=== PATIENT | male | born 1950 | race Caucasian/White ===

== ENCOUNTER 2021-02-15 18:47 | Inpatient (IN) | payer OTHER ==
--- OUTSIDE RECORDS SUMMARY | 2021-02-15 18:49 | XMS REPORT | Continuity of Care Document ---
:1950 Author Organization [facility] t Address [address] [place] [address] Care Team Providers Name Role Phone Pcp Primary Care Physician Unavailable PATRICE Attending Clinician Unavailable CATY Attending Clinician Unavailable CATY Admitting Clinician Unavailable Payers Payer Name Policy Type Policy Number Effective Date Expiration Date S henry MEDICARE PART A \T\ B [id number] - MEDICARE Problems Condition Condition Condition Status Onset Resolution Last Treating Co mments Source Name Details Category Date Date Treatment Clinician Date ST ST Disease Active [facility] 03-11 Luke [facility] - myocardial myocardial 00:00: Me dical infarction infarction 00 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 Family History Family Member Diagnosis Comments Start Date Stop Date Source Natural father Heart disease [facility] Maternal grandmother Diabetes [facility] Natural mother Cancer [facility] Social History Social Habit Start Date Stop Date Quantity Comments [facility] St[facility] History [facility] - Alcohol Binge Medical [facility] Sex Assigned At [facility] Tobacco use and 2019-03-11 2019-03-11 Never used [facility] - exposure 00:00:00 00:00:00 Medical Center Alcohol intake 2019-03-11 2019-03-11 [facility]:00:00 non-drinker of Medical Ce nter alcohol (finding) History [facility] 2019-03-10 2019-03-10 [address] [facility] - Alcohol Frequency 00:00:00 00:00:00 Medical Center Smoking Status Start Date Stop Date Source Never sm[facility] Medications Ordered Filled Start Stop Current Ordering Indication Dosage Frequency Signature Comments Components Source Medication Medication Date Date Medication? Clinician (SIG) Name Name allopurinol Yes 300mg QD Take [address] (ZYLOPRIM) 8-24 mg [facility] - 100 MG 11:15: mouth Medical tablet 42 daily. Center ticagrelor Yes 90mg Q.5D Take 1 [facility] (BRILINTA) 03-12 tablet (90 Brit[facility] es - 90 mg Tab 00:00: mg total) Med ical tablet 00 by mouth 2 Center (two) times daily. aspirin 81 2019- No 81mg QD Take [address] MG chewable 03-12 tablet (81 L ukes - tablet 00:00: 23:59 mg total) Medic al 00 :00 by mouth Center daily. atorvastati 2019- No 80mg QD Take [address] n (LIPITOR) 03-12 tablet (80 L ukes - 80 MG 00:00: 23:59 mg total) Medica l tablet 00 :00 by mouth Center daily. lisinopril 2019- No 2.5mg QD Take [address] (PRINIVIL,Z 03-12 tablet Lukes - ESTRIL) 2.5 00:00: 23:59 (2.5 mg Me dical MG tablet 00 :00 total) by Cente r mouth every morning. metoprolol 2019- No 25mg QD Take [address] (TOPROL-XL) 03-12 tablet (25 L ukes - 25 MG 24 hr 00:00: 23:59 mg total) Medical tablet 00 :00 by mouth Center daily. Procedures This patient has no known procedures. Plan of Care Planned Activity Planned Date Details Comments Source Future Scheduled 2020-03-21 INFLUENZA VACCINE (#1) [facility] Test 00:00:00 [code = INFLUENZA Medical Ce nter VACCINE (#1)] Future Scheduled 2015-07-[address] [facility] - Test 00:00:00 WELLNESS (YEAR 2 or Medical Center FIRST YEAR if no IPPE) [code = MEDICARE ANNUAL WELLNESS (YEAR 2 or FIRST YEAR if no IPPE)] Future Scheduled 2014 PNEUMOCOCCAL 65+ YRS [facility] - Test 00:00:00 (1 of 1 - [facility] [id number] PCV13) [code = PNEUMOCOCCAL 65+ YRS (1 of 1 - [id number] PCV13)] Future Scheduled [address] es - Test 00:00:00 malignant neoplasm of [facility] colon (procedure) [code = 794220050] Encounters Start End Encounter Admission Attending Care Care Encounter Source Date/Time Date/Time Type Type Clinicians Facility Department ID 2021-01-16 2021-01-16 Outpatient PATRICE [facility] [id number] [facility] 09:43:06 13:13:53 CASPER rodriguez of Medicin e 2021-01-16 2021-01-16 Outpatient [facility] [id number] [facility] 09:44:10 10:55:15 Jose G rodriguez of Medicin e Results Test Description Test Time Test Comments Results Result Comments Source BASIC METABOLIC PANEL 2019-03-12 07:13:00 Test Item Value Reference Range Interpretation Comme nts SODIUM (BEAKER) (test code = 137 meq/L 136-145 381) POTASSIUM (BEAKER) (test code 4.2 meq/L 3.5-5.1 = 379) CHLORIDE (BEAKER) (test code = 107 meq/L 98-107 382) CO2 (BEAKER) (test code = 355) 23 meq/L 22-29 BLOOD UREA NITROGEN (BEAKER) 20 mg/dL 7-21 (test code = 354) CREATININE (BEAKER) (test code 1.32 mg/dL 0.57-1.25 H = 358) GLUCOSE RANDOM (BEAKER) (test 100 mg/dL 70-105 code = 652) CALCIUM (BEAKER) (test code = 8.6 mg/dL 8.4-10.2 697) EGFR (BEAKER) (test code = I NSUFFICIENT CLINICAL DATA TO 1092) CALCULATE ESTIM ATED GFR. CBC W/PLT COUNT & AUTO [id number] 06:31:00 Test Item Value Reference Range Interpretation Comments WHITE BLOOD CELL COUNT (BEAKER) 13.4 K/ L 3.5-10.5 H (test code = 775) RED BLOOD CELL COUNT (BEAKER) 4.55 M/ L 4.63-6.08 L (test code = 761) HEMOGLOBIN (BEAKER) (test code = 13.7 GM/DL 13.7-17.5 410) HEMATOCRIT (BEAKER) (test code = 40.2 % 40.1-51.0 411) MEAN CORPUSCULAR VOLUME (BEAKER) 88.4 fL 79.0-92.2 (test code = 753) MEAN CORPUSCULAR HEMOGLOBIN 30.1 pg 25.7-32.2 (BEAKER) (test code = 751) MEAN CORPUSCULAR HEMOGLOBIN CONC 34.1 GM/DL 32.3-36.5 (BEAKER) (test code = 752) RED CELL DISTRIBUTION WIDTH 13.2 % 11.6-14.4 (BEAKER) (test code = 412) PLATELET COUNT (BEAKER) (test 239 K/CU MM 150-450 code = 756) MEAN PLATELET VOLUME (BEAKER) 9.4 fL 9.4-12.4 (test code = 754) NUCLEATED RED BLOOD CELLS 0 /100 WBC 0-0 (BEAKER) (test code = 413) NEUTROPHILS RELATIVE PERCENT 62 % (BEAKER) (test code = 429) LYMPHOCYTES RELATIVE PERCENT 27 % (BEAKER) (test code = 430) MONOCYTES RELATIVE PERCENT 8 % (BEAKER) (test code = 431) EOSINOPHILS RELATIVE PERCENT 2 % (BEAKER) (test code = 432) BASOPHILS RELATIVE PERCENT 0 % (BEAKER) (test code = 437) NEUTROPHILS ABSOLUTE COUNT 8.30 K/ L 1.78-5.38 H (BEAKER) (test code = 670) LYMPHOCYTES ABSOLUTE COUNT 3.56 K/ L 1.32-3.57 (BEAKER) (test code = 414) MONOCYTES ABSOLUTE COUNT (BEAKER) 1.13 K/ L 0.30-0.82 H (test code = 415) EOSINOPHILS ABSOLUTE COUNT 0.32 K/ L 0.04-0.54 (BEAKER) (test code = 416) BASOPHILS ABSOLUTE COUNT (BEAKER) 0.05 K/ L 0.01-0.08 (test code = 417) IMMATURE GRANULOCYTES-RELATIVE 0 % 0-1 PERCENT (BEAKER) (test code = 2801) [id number] 20:34:00 Test Item Value Reference Range Interpretation Comments ACTIVATED CLOTTING TIME 285 sec TEST ED AT [place] [address] [facility] (test code = [address] [place] [address]) [id number] 20:34:00 Test Item Value Reference Range Interpretation Comments ACTIVATED CLOTTING TIME 241 sec TEST ED AT [place] [address] ([facility]) (test code = [address] [place] [address]) [id number] HEMOGLOBIN [id number] 09:31:00 Test Item Value Reference Range Interpretation Comments HEMOGLOBIN A1C (BEAKER) (test code = 5.6 % 4.3-6.1 368) [id number] 08:17:00 Test Item Value Reference Range Interpretation Comments THYROID STIMULATING HORMONE 2.46 uIU/mL 0.35-4.94 (BEAKER) (test code = 772) BASIC METABOLIC [id number] 06:37:00 Test Item Value Reference Range Interpretation Comments SODIUM (BEAKER) 137 meq/L 136-145 (test code = 381) POTASSIUM (BEAKER) 4.3 meq/L 3.5-5.1 (test code = 379) CHLORIDE (BEAKER) 105 meq/L 98-107 (test code = 382) CO2 (BEAKER) (test 23 meq/L 22-29 code = 355) BLOOD UREA NITROGEN 21 mg/dL 7-21 (BEAKER) (test code = 354) CREATININE (BEAKER) 1.51 mg/dL 0.57-1.25 H (test code = 358) GLUCOSE RANDOM 152 mg/dL 70-105 H (BEAKER) (test code = 652) CALCIUM (BEAKER) 9.2 mg/dL 8.4-10.2 (test code = 697) EGFR (BEAKER) (test mL/min/1.73 INSUFFIC IENT CLINICAL code = 1092) sq m DATA TO CALCULA TE ESTIMATED GFR. [id number] 06:34:00 Test Item Value Reference Range Interpretation Comments MAGNESIUM (BEAKER) (test code = 2.1 mg/dL 1.6-2.6 627) FastingLIPID [id number] 06:34:00 Test Item Value Reference Range Interpretation Comments TRIGLYCERIDES (BEAKER) (test code = 179 mg/dL 540) CHOLESTEROL (BEAKER) (test code = 202 mg/dL 631) HDL CHOLESTEROL (BEAKER) (test code 40 mg/dL = 976) LDL CHOLESTEROL CALCULATED (BEAKER) 126 mg/dL (test code = 633) Triglyceride Reference Range: Low Risk <150 Borderline 150-199 High Risk 200-499 Very High Risk >=500Cholesterol Reference Range: Low Risk <200 Borderline 200-239 High Risk >240HDL Cholesterol Reference Range: Low Risk >=60 High Risk <40LDL Cholesterol Reference Range: Optimal <100 Near Optimal 100-129 Borderline 130-159 High 160-189 Very High >=190 FastingCBC W/PLT COUNT & AUTO [id number] 05:03:00 Test Item Value Reference Range Interpretation Comments WHITE BLOOD CELL COUNT (BEAKER) 16.6 K/ L 3.5-10.5 H (test code = 775) RED BLOOD CELL COUNT (BEAKER) 4.87 M/ L 4.63-6.08 (test code = 761) HEMOGLOBIN (BEAKER) (test code = 14.7 GM/DL 13.7-17.5 410) HEMATOCRIT (BEAKER) (test code = 42.3 % 40.1-51.0 411) MEAN CORPUSCULAR VOLUME (BEAKER) 86.9 fL 79.0-92.2 (test code = 753) MEAN CORPUSCULAR HEMOGLOBIN 30.2 pg 25.7-32.2 (BEAKER) (test code = 751) MEAN CORPUSCULAR HEMOGLOBIN CONC 34.8 GM/DL 32.3-36.5 (BEAKER) (test code = 752) RED CELL DISTRIBUTION WIDTH 13.0 % 11.6-14.4 (BEAKER) (test code = 412) PLATELET COUNT (BEAKER) (test 266 K/CU MM 150-450 code = 756) MEAN PLATELET VOLUME (BEAKER) 9.6 fL 9.4-12.4 (test code = 754) NUCLEATED RED BLOOD CELLS 0 /100 WBC 0-0 (BEAKER) (test code = 413) NEUTROPHILS RELATIVE PERCENT 85 % (BEAKER) (test code = 429) LYMPHOCYTES RELATIVE PERCENT 10 % (BEAKER) (test code = 430) MONOCYTES RELATIVE PERCENT 4 % (BEAKER) (test code = 431) EOSINOPHILS RELATIVE PERCENT 0 % (BEAKER) (test code = 432) BASOPHILS RELATIVE PERCENT 0 % (BEAKER) (test code = 437) NEUTROPHILS ABSOLUTE COUNT 14.15 K/ L 1.78-5.38 H (BEAKER) (test code = 670) LYMPHOCYTES ABSOLUTE COUNT 1.66 K/ L 1.32-3.57 (BEAKER) (test code = 414) MONOCYTES ABSOLUTE COUNT (BEAKER) 0.69 K/ L 0.30-0.82 (test code = 415) EOSINOPHILS ABSOLUTE COUNT 0.01 K/ L 0.04-0.54 L (BEAKER) (test code = 416) BASOPHILS ABSOLUTE COUNT (BEAKER) 0.04 K/ L 0.01-0.08 (test code = 417) IMMATURE GRANULOCYTES-RELATIVE 1 % 0-1 PERCENT (BEAKER) (test code = 2807)
[2021-02-15] MEDS ORDERED: AZITHROMYCIN 500 MG INJ IVPB ONE (19:39)
[2021-02-15] MEDS ORDERED: METHYLPREDNISOLONE 125 MG INJ ONE (19:39)
[2021-02-15] MEDS ORDERED: ACETAMINOPHEN 500 MG TAB ONE (19:39)
[2021-02-15] MEDS ORDERED: ALBUTEROL INHALER 60 PUFF/8 GM IH ONE (19:40)
[2021-02-15] MEDS ORDERED: NA CHLORIDE 0.9% 250 ML ONE (19:40)
[2021-02-15] MEDS ORDERED: ENOXAPARIN 80 MG/0.8 ML SQ ONE (19:40)
[2021-02-15] MEDS ORDERED: NA CHLORIDE 0.9% 1,000 ML ONE (19:40)
[2021-02-15 19:43] LABS: Arterial Blood Carboxyhemoglob 1.8 % (0-1.5); Blood Gas Oxyhemoglobin 85.3 % (94-97); Blood O2 Saturation 87.7 % (92-98.5)
[2021-02-15 19:51] LABS: Absolute Lymphocytes (CBC) 0.7 K/uL (0.7-4.9); Basophils % 0.3 % (0-1.3); Hematocrit 37.1 % (39.6-49.0); Lymphocytes % 3.4 % (15.3-44.8); MPV 7.7 fL (7.6-11.3)
[2021-02-15 20:03] LABS: Protime INR 1.33
--- NOTE | 2021-02-15 20:11 | RAD REPORT ---
EXAM DESCRIPTION: RAD - Chest Single View - 02/15/2021 7:43 pm CLINICAL HISTORY: CONGESTION COMPARISON: Chest Single View dated 10/20/2016 FINDINGS: Patchy ill-defined airspace disease bilaterally. The heart size is within normal limits.No acute osseous abnormality. No significant pleural effusions or pneumothorax. IMPRESSION: Moderate patchy bilateral airspace disease concerning for multifocal pneumonia, includin g Covid-19
--- NOTE | 2021-02-15 20:16 | EDPHYS ---
Physician Documentation [facility] Name: Issa Breen Age: 70 yrs Sex: Male : 1950 Arrival Date: 02/15/2021 Time: 18:48 Bed 4 Private MD: ED Physician Abigail Moore HPI: 02/15 19:18 This 70 yrs old Male presents to ER via Wheelchair with complaints of ma2 Shortness Of Breath - covid+. 19:18 The patient has shortness of breath at rest. Onset: The symptoms/episode began/occurred ma2 gradually, 1 day(s) ago. Associated signs and symptoms: Pertinent negatives: diaphoresis, hemoptysis, nausea, numbness in extremities. Severity of symptoms: At their worst the symptoms were mild in the emergency department the symptoms are unchanged. The patient has not experienced similar symptoms in the past. O2 was in 60 at home, feels sick and dehydrated, passed out. Historical: - Allergies: 18:51 No Known Allergies; aa5 - Home Meds: 18:51 Plavix 75 mg Oral tab 1 tab once daily [Active]; lisinopril 2.5 mg Oral tab once daily aa5 [Active]; atorvastatin 80 mg oral tab 1 tab once daily [Active]; metoprolol tartrate 25 mg Oral tab once daily [Active]; aspirin 81 mg Oral tab daily [Active]; allopurinol 100 mg Oral tab once daily [Active]; - PMHx: 18:51 Gout; Hypertension; Myocardial infarction; aa5 - PSHx: 18:51 heart stent; aa5 - Social history:: Smoking status: Patient denies any tobacco usage or history of. ROS: 19:19 Constitutional: Negative for fever, chills, and weight loss. ma2 19:19 All other systems are negative. Exam: 19:19 Constitutional: This is a well developed, well nourished patient who is awake, alert, ma2 and in no acute distress. Head/Face: Normocephalic, atraumatic. Eyes: Pupils equal round and reactive to light, extra-ocular motions intact. Lids and lashes normal. Conjunctiva and sclera are non-icteric and not injected. Cornea within normal limits. Periorbital areas with no swelling, redness, or edema. ENT: Nares patent. No nasal discharge, no septal abnormalities noted. Tympanic membranes are normal and external auditory canals are clear. Oropharynx with no redness, swelling, or masses, exudates, or evidence of obstruction, uvula midline. Mucous membranes moist. Neck: Trachea midline, no thyromegaly or masses palpated, and no cervical lymphadenopathy. Supple, full range of motion without nuchal rigidity, or vertebral point tenderness. No Meningismus. Chest/axilla: Normal chest wall appearance and motion. Nontender with no deformity. No lesions are appreciated. Cardiovascular: Regular rate and rhythm with a normal S1 and S2. No gallops, murmurs, or rubs. Normal PMI, no JVD. No pulse deficits. Respiratory: Patient is hypoxemic, labored breathing, saturation is 80 on room air, he is on nonrebreather at this time satting 92, respiratory rate is 30, there is diffuse bilateral rails in both lungs lungs. However have equal breath sounds bilaterally, No wheezes noted. no retractions or nasal flaring. Abdomen/GI: Soft, non-tender, with normal bowel sounds. No distension or tympany. No guarding or rebound. No evidence of tenderness throughout. Skin: Warm, dry with normal turgor. Normal color with no rashes, no lesions, and no evidence of cellulitis. MS/ Extremity: Pulses equal, no cyanosis. Neurovascular intact. Full, normal range of motion. Neuro: Awake and alert, GCS 15, oriented to person, place, time, and situation. Cranial nerves II-XII grossly intact. Motor strength 5/5 in all extremities. Sensory grossly intact. Cerebellar exam normal. Normal gait. Vital Signs: 18:51 BP 132 / 57; Pulse 100; Resp 30 S; Temp 102.0(O); Pulse Ox 69% on R/A; Weight 88.45 kg aa5 (R); Height 5 ft. 8 in. (172.72 cm) (R); Pain 0/10; 18:53 Pulse Ox 63% on R/A; aa5 18:56 Pulse Ox 86% on Non-rebreather mask; aa5 20:00 BP 107 / 55; Pulse 96; Resp 26; Pulse Ox 92% on NC; jb4 21:00 BP 101 / 58; Pulse 89; Resp 26; Temp 98.2(O); Pulse Ox 92% on NC; jb4 22:13 BP 106 / 57; Pulse 74; Resp 24; Pulse Ox 90% on NC; ea 18:51 Body Mass Index 29.65 (88.45 kg, 172.72 cm) aa5 20:00 30 LPM, 90% FiO2, High Flow Cannula jb4 22:13 High flow cannula ea MDM: 19:03 Patient medically screened. [facility] 19:19 Differential diagnosis: Anemia asthma, Bronchitis CHF exacerbation, pneumonia, vt2 pulmonary edema, reactive airway disease. 20:15 Data reviewed: vital signs, nurses notes. Counseling: I had a detailed discussion with [facility] the patient and/or guardian regarding: the historical points, exam findings, and any diagnostic results supporting the discharge/admit diagnosis, the presence of at least one elevated blood pressure reading (>120/80) during this emergency department visit, the need for further work-up and treatment in the hospital. 02/15 19:13 Order name: BMP [facility] 02/15 19:13 Order name: Blood Culture Adult (2) [facility] 02/15 19:13 Order name: C-Reactive Protein [facility] 02/15 19:13 Order name: CBC with Diff [facility] 02/15 19:13 Order name: Ferritin [facility] 02/15 19:13 Order name: Flu [facility] 02/15 19:13 Order name: LFT's [facility] 02/15 19:13 Order name: Lactate; Complete Time: 20:23 [facility] 02/15 19:13 Order name: Lipase; Complete Time: 20:27 [facility] 02/15 19:13 Order name: PT-INR; Complete Time: 20:15 [facility] 02/15 19:13 Order name: Procalcitonin [facility] 02/15 19:13 Order name: Ptt, Activated; Complete Time: 20:15 [facility] 02/15 19:13 Order name: Strep; Complete Time: 20:38 [facility] 02/15 19:13 Order name: Troponin (emerg Dept Use Only); Complete Time: 20:27 [facility] 02/15 19:13 Order name: Urine Microscopic Only [facility] 02/15 19:13 Order name: CXR XRAY; Complete Time: 20:15 [facility] 02/15 19:13 Order name: ABG; Complete Time: 20:15 [facility] 02/15 19:13 Order name: Basic Metabolic Panel; Complete Time: 20:27 [facility] 02/15 19:13 Order name: Blood Culture [facility] 02/15 19:13 Order name: C-Reactive Protein; Complete Time: 20:27 [facility] 02/15 19:13 Order name: CBC with Automated Diff; Complete Time: 20:38 [facility] 02/15 19:13 Order name: Ferritin; Complete Time: 20:27 [facility] 02/15 19:13 Order name: Influenza Screen (A ; Complete Time: 20:38 [facility] 02/15 19:13 Order name: Liver (Hepatic) Function; Complete Time: 20:27 [facility] 02/15 20:36 Order name: CT Head Brain wo Cont [facility] 02/15 20:37 Order name: Manual Differential; Complete Time: 20:38 [facility] 02/15 20:38 Order name: Throat Culture [facility] 02/15 21:33 Order name: CT [facility] 02/15 19:13 Order name: EKG; Complete Time: 19:13 [facility] 02/15 19:13 Order name: Cardiac monitoring; Complete Time: 20:13 [facility] 02/15 19:13 Order name: Droplet/Contact Precautions; Complete Time: 19:14 [facility] 02/15 19:13 Order name: EKG - Nurse/Tech; Complete Time: 20:13 [facility] 02/15 19:13 Order name: IV Start; Complete Time: 20:13 [facility] 02/15 19:13 Order name: Labs collected and sent; Complete Time: 20:13 [facility] 02/15 19:13 Order name: O2 Per Protocol; Complete Time: 19:14 [facility] 02/15 19:13 Order name: O2 Sat Monitoring; Complete Time: 19:14 [facility] Administered Medications: 19:30 Drug: Acetaminophen 1000 mg Route: PO; jb4 21:36 Follow up: Response: No adverse reaction; Marked relief of symptoms; Temperature is jb4 decreased 19:30 Drug: Albuterol HFA Inhaler 2 puffs Route: Inhalation; jb4 21:35 Follow up: Response: No adverse reaction jb4 19:45 Drug: SOLU-Medrol (methylPrednisoLONE) 125 mg Route: IVP; Site: right forearm; jb4 21:35 Follow up: Response: No adverse reaction jb4 19:59 Drug: Lovenox (enoxaparin) 80 mg Route: Sub-Q; Site: left lower abdomen; jb4 21:35 Follow up: Response: No adverse reaction jb4 20:00 Drug: NS 0.9% 1000 ml Route: IV; Rate: 125 ml/hr; Site: right forearm; jb4 21:35 Follow up: Response: No adverse reaction; IV Status: Infusion continued upon admission jb4 20:02 Drug: Rocephin (cefTRIAXone) 1 grams Route: IV; Rate: calculated rate; Site: right jb4 forearm; 20:05 Follow up: Response: No adverse reaction; IV Status: Completed infusion jb4 20:05 Drug: AZITHromycin 500 mg Route: IVPB; Infused Over: 1 hrs; Site: right forearm; jb4 21:05 Follow up: Response: No adverse reaction; IV Status: Completed infusion; IV Intake: jb4 250ml Disposition Summary: 02/15/21 20:16 Hospitalization Ordered Hospitalization Status: Inpatient Admission ma2 Provider: Lenny Crews Condition: Stable [facility] Problem: new vt2 Symptoms: are unchanged vt2 Bed/Room Type: Standard [facility] Location: Intensive Care Unit(02/15/21 21:04) tl1 Room Assignment: 3-(02/15/21 21:04) tl1 Diagnosis - Viral pneumonia, unspecified - COVID - 19 ma2 Forms: - Medication Reconciliation Form ma2 - SBAR form ma2 Signatures: Dispatcher [employer] EDYamile Appiah RN RN bb Luana Garcia RN RN aa5 Daniel Zuñiga, CHIEF OF STAFF-C CHIEF OF STAFF-Cla1 Felipa Dhaliwal RN RN tl1 Satinder Pedroza RN RN jb4 Abigail Moore MD MD ma2 Corrections: (The following items were deleted from the chart) 20:38 19:13 Zabala ordered. ma2 la1 21:04 20:16 Telemetry/MedSurg (Inpatient) ma2 tl1 21:04 20:16 ma2 tl1 22:22 19:13 Urine Dipstick-Ancillary ordered. ma2 jb4
--- NOTE | 2021-02-15 20:16 | ER ---
Nurse's Notes [facility] Name: Issa Breen Age: 70 yrs Sex: Male : 1950 Arrival Date: 02/15/2021 Time: 18:48 Bed 4 Private MD: Diagnosis: Viral pneumonia, unspecified-COVID - 19 Presentation: 02/15 18:51 Chief complaint: Pt's nephew reports pt has been postiive for COVID-19 for 2 weeks and aa5 reports O2 sat was 63% RA at home and HR 120s. Pt c/o SOB and fever. Labored respirations noted, pt is 69% O2 sat RA. 18:51 Coronavirus screen: Client reports previous positive COVID test result. Ebola Screen: aa5 Patient negative for fever greater than or equal to 101.5 degrees Fahrenheit, and additional compatible Ebola Virus Disease symptoms. Initial Sepsis Screen: Does the patient meet any 2 criteria? RR > 20 per min. Temp <36.0*C (96.8*F)) or > 38.3*C (100.9*F). HR > 90 bpm. Yes Does the patient have a suspected source of infection? Yes:. Risk Assessment: Do you want to hurt yourself or someone else? Patient reports no desire to harm self or others. Onset of symptoms was February 15, 2021. 18:51 Acuity: RICA 1 aa5 18:51 Method Of Arrival: Wheelchair aa5 Historical: - Allergies: 18:51 No Known Allergies; aa5 - Home Meds: 18:51 Plavix 75 mg Oral tab 1 tab once daily [Active]; lisinopril 2.5 mg Oral tab once daily aa5 [Active]; atorvastatin 80 mg oral tab 1 tab once daily [Active]; metoprolol tartrate 25 mg Oral tab once daily [Active]; aspirin 81 mg Oral tab daily [Active]; allopurinol 100 mg Oral tab once daily [Active]; - PMHx: 18:51 Gout; Hypertension; Myocardial infarction; aa5 - PSHx: 18:51 heart stent; aa5 - Social history:: Smoking status: Patient denies any tobacco usage or history of. Screenin:05 Abuse screen: Denies threats or abuse. Nutritional screening: No deficits noted. jb4 Tuberculosis screening: No symptoms or risk factors identified. Fall Risk None identified. Assessment: 19:05 General: Appears distressed, uncomfortable, Behavior is calm, cooperative. Pain: Denies jb4 pain. Neuro: Level of Consciousness is awake, alert, obeys commands, Oriented to person, place, time, situation. Cardiovascular: Patient's skin is warm and dry. Respiratory: Airway is patent Respiratory effort is even, labored, Respiratory pattern is symmetrical, tachypnea Breath sounds are clear in right upper lobe, left upper lobe and left lower lobe Breath sounds with crackles in right middle lobe, right lower lobe, left posterior upper lobe, right posterior upper lobe, left posterior lower lobe, right posterior middle lobe and right posterior lower lobe. GI: No signs and/or symptoms were reported involving the gastrointestinal system. : No signs and/or symptoms were reported regarding the genitourinary system. EENT: No signs and/or symptoms were reported regarding the EENT system. Derm: Skin is intact, Skin is pink, warm \T\ dry. Musculoskeletal: Circulation, motion, and sensation intact. Range of motion: intact in all extremities. 20:00 Reassessment: Pt remains awake and alert, remains on High Flow NC. IV site is clean dry jb4 and intact. Respirations remain labored and tachypneic. No s/s of pain or distress noted. 21:00 Reassessment: Patient appears in no apparent distress at this time. No changes from jb4 previously documented assessment. Patient and/or family updated on plan of care and expected duration. Pain level reassessed. Vital Signs: 18:51 BP 132 / 57; Pulse 100; Resp 30 S; Temp 102.0(O); Pulse Ox 69% on R/A; Weight 88.45 kg aa5 (R); Height 5 ft. 8 in. (172.72 cm) (R); Pain 0/10; 18:53 Pulse Ox 63% on R/A; aa5 18:56 Pulse Ox 86% on Non-rebreather mask; aa5 20:00 BP 107 / 55; Pulse 96; Resp 26; Pulse Ox 92% on NC; jb4 21:00 BP 101 / 58; Pulse 89; Resp 26; Temp 98.2(O); Pulse Ox 92% on NC; jb4 22:13 BP 106 / 57; Pulse 74; Resp 24; Pulse Ox 90% on NC; ea 18:51 Body Mass Index 29.65 (88.45 kg, 172.72 cm) aa5 20:00 30 LPM, 90% FiO2, High Flow Cannula jb4 22:13 High flow cannula ea ED Course: 18:48 Patient arrived in ED. as 18:51 Arm band placed on. aa5 19:03 Abigail Moore MD is Attending Physician. ma2 19:03 Baron Rogers, JUANA is Primary Nurse. bp 19:04 Triage completed. aa5 19:05 Patient has correct armband on for positive identification. Bed in low position. Call 4 light in reach. Side rails up X 1. dubbing machine operator on. Pulse ox on. NIBP on. 19:43 CXR XRAY In Process Unspecified. EDMS 19:45 Initial lab(s) drawn, by me, sent to lab. Inserted saline lock: 18 gauge in right jb4 antecubital area, using aseptic technique. Blood collected. 20:15 Lenny Crews is Hospitalizing Provider. ma2 21:34 No provider procedures requiring assistance completed. Patient admitted, IV remains in jb4 place. Administered Medications: 19:30 Drug: Acetaminophen 1000 mg Route: PO; jb4 21:36 Follow up: Response: No adverse reaction; Marked relief of symptoms; Temperature is jb4 decreased 19:30 Drug: Albuterol HFA Inhaler 2 puffs Route: Inhalation; jb4 21:35 Follow up: Response: No adverse reaction jb4 19:45 Drug: SOLU-Medrol (methylPrednisoLONE) 125 mg Route: IVP; Site: right forearm; jb4 21:35 Follow up: Response: No adverse reaction jb4 19:59 Drug: Lovenox (enoxaparin) 80 mg Route: Sub-Q; Site: left lower abdomen; jb4 21:35 Follow up: Response: No adverse reaction jb4 20:00 Drug: NS 0.9% 1000 ml Route: IV; Rate: 125 ml/hr; Site: right forearm; jb4 21:35 Follow up: Response: No adverse reaction; IV Status: Infusion continued upon admission jb4 20:02 Drug: Rocephin (cefTRIAXone) 1 grams Route: IV; Rate: calculated rate; Site: right jb4 forearm; 20:05 Follow up: Response: No adverse reaction; IV Status: Completed infusion jb4 20:05 Drug: AZITHromycin 500 mg Route: IVPB; Infused Over: 1 hrs; Site: right forearm; jb4 21:05 Follow up: Response: No adverse reaction; IV Status: Completed infusion; IV Intake: jb4 250ml Intake: 21:05 IV: 250ml; Total: 250ml. jb4 Outcome: 20:16 Decision to Hospitalize by Provider. ma2 22:13 Admitted to ICU accompanied by nurse, via stretcher, with oxygen, on monitor, with ea chart, Report called to Receiving nurse in ICU 22:13 Condition: stable 22:13 Instructed on the need for admit. 22:22 Patient left the ED. jb4 Signatures: Dispatcher [employer] EDMS Shira Hendrickson Audri, RN RN aa5 Satinder Pedroza, RN RN jb4 Amber Wood, RN RN Baron Donis RN RN Abigail Anthony MD MD ma2 Corrections: (The following items were deleted from the chart) 19:04 18:51 Chief complaint: Pt's nephew reports pt has been postiive for COVID-19 for 2 aa5 weeks and reports O2 sat was 63% RA at home aa5 20:00 19:45 SOLU-Medrol (methylPrednisoLONE) 125 mg IVP in right antecubital jb4 jb4
[2021-02-15 20:25] LABS: Albumin 2.4 g/dL (3.4-5.0); Bilirubin Direct 0.8 mg/dL (0-0.2); Potassium 3.8 mmol/L (3.5-5.1); Protein, Total 6.7 g/dL (6.4-8.2); Troponin (Emerg Dept Use Only) 0.09 ng/mL (0.0-0.045)
[2021-02-15] MEDS ORDERED: CEFTRIAXONE/SWI 1gm 1 GM/10 ML SYR ONE (20:27)
[2021-02-15 20:36] LABS: Blood Morphology Comment NOT SEEN (NOT SEEN); Platelet Estimate ADEQ
[2021-02-15] MEDS ORDERED: ACETAMINOPHEN 500 MG TAB PO PRN (20:43)
[2021-02-15] MEDS ORDERED: ONDANSETRON 4 MG/2 ML VIAL IV PRN (20:43)
[2021-02-15] MEDS: NA CHLORIDE 0.9% 1,000 ML IV SCH (20:49)
[2021-02-15] MEDS: APIXABAN 5 MG TABLET PO SCH (20:51)
[2021-02-15] MEDS: ASCORBIC ACID 500 MG TABLET PO SCH (21:00)
[2021-02-15] MEDS ORDERED: ATORVASTATIN 40 MG TAB PO SCH (21:00)
[2021-02-15] MEDS ORDERED: METHYLPREDNISOLONE 40 MG INJ IV SCH (21:00)
--- NOTE | 2021-02-15 21:23 | P.HP ---
Certification for Inpatient Patient admitted to: Inpatient With expected LOS: >2 Midnights Patient will require the following post-hospital care: None Practitioner: I am a practitioner with admitting privileges, knowledge of patient current condition, hospital course, and medical plan of care. Services: Services provided to patient in accordance with Admission requirements found in Title 42 Section 412.3 of the Code of Federal Regulations Patient History Date of Service: 02/15/21 Primary Care Provider: None Reason for admission: COVID-19 pneumonia History of Present Illness: 70-year-old male with history of CAD status post stent, gout, hypertension presents to the emergency department for shortness of breath. P atient reports testing positive for Covid approximately 2 weeks ago, family member checked on him and noted that his saturations were in the 60s on room air. Patient was brought to the emergency department for further evaluation and was placed on high flow oxygen at 90% FiO2 40 L. Patient labs were significant for white blood cell count 20.3 with left shift hemoglobin 12.4 ABG with pH of 7.5 PCO2 25.8 PO2 56.1 sodium 133 creatinine 1.79 GFR 38 lactic acid 3.2 ferritin 1400 2T bili 2.0D bili 0.8 AST 148 ALT 135 alk phos 295 troponin 0 0.09 C-reactive protein 230 procalcitonin 0.45. Patient likely was hypoxic for a very prolonged period of time at home contributing to this endorgan damage. Chest x-ray demonstrates multifocal pneumonia compatible with COVID-19 pattern, patient was given IV steroids in the emergency department ED provider wishes to admit for further evaluation and management. 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 moist/pink Neck: Supple, 2+ carotid pulse no bruit, No LAD Respiratory: Normal air movement, Diminished, Other (Tachypnea, dyspnea) Cardiovascular: No edema, Regular rate/rhythm, Normal S1 S2 Capillary refill: <2 Seconds Gastrointestinal: Normal bowel sounds, No tenderness Musculoskeletal: No tenderness Integumentary: No rashes Neurological: Normal speech, Normal strength at 5/5 x4 extr, Normal tone, Normal affect - Studies Laboratory Data (last 24 hrs) 02/15/21 19:37: PT 15.3 H, INR 1.33, APTT 27.6 02/15/21 19:37: WBC 20.30 H*, Hgb 12.4 L, Hct 37.1 L, Plt Count 237 02/15/21 19:37: Sodium 133 L, Potassium 3.8, BUN 31 H, Creatinine 1.79 H, Glucose 144 H, Total Bilirubin 2.0 H, AST 148 H, ALT 135 H, Alkaline Phosphatase 294 H, Lipase 105 Microbiology Data (last 24 hrs): 02/15/21 19:45 Nasopharnyx Influenza Type A Antigen Screen - Final 02/15/21 19:45 Nasopharnyx Influenza Type B Antigen Screen - Final 02/15/21 19:45 Throat Group A Streptococcus Rapid Screen - Final Assessment and Plan - Plan Assessment: Acute hypoxic respiratory failure secondary to COVID-19 pneumoniaunvaccinated History CAD S/P stent Renal insufficiency Acute liver injury Elevated troponin Hypertension Gout Plan: Acute hypoxic respiratory failure secondary to COVID-19 pneumoniaunvaccinated: Possibly complicated with superimposed bacterial pneumonia as patient's white blood cell count is 20, patient has not been on IV steroids at home, continue with IV Rocephin/Zithromax in addition to IV steroids, oral supplements, supplemental oxygen as needed. Pulmonology consulted, patient with elevated kidney/liver labs will limit options for additional therapeutics. Continue with full dose anticoagulation, patient received Lovenox in the emergency department will transition to Eliquis tomorrow. Appreciate further input from pulmonology. History CAD S/P stent: Obtain an continue home medications Renal insufficiency: Patient appears dehydrated, sodium 133, will continue gentle hydration overnight. Consult nephrology as necessary. Acute liver injury: Patient without any abdominal pain, likely related to prolonged hypoxia, will obtain daily CMP levels to monitor LFT. Elevated troponin: Likely demand ischemia related to hypoxia, trend troponins, monitor on telemetry. Cardiology consult as necessary. Hypertension: Continue home medication Gout: Continue home medication DVT PPX: Code status: Discharge Plan: Home Plan to discharge in: Greater than 2 days - Advance Directives Does patient have a Living Will: No Does patient have a Durable POA for Healthcare: No - Code Status/Comfort Care Code Status Assessed: Yes (Full code) Critical Care: No Time Spent Managing Pts Care (In Minutes): 55
--- NOTE | 2021-02-15 21:32 | RAD REPORT ---
EXAM DESCRIPTION: CT - Head Brain Wo Cont - 02/15/2021 9:25 pm CLINICAL HISTORY: fall COMPARISON: Head Brain Wo Cont dated 10/20/2016 TECHNIQUE: All CT scans are performed using dose optimization technique as appropriate and may inclu de automated exposure control or mA/KV adjustment according to patient size. FINDINGS: No intracranial hemorrhage, hydrocephalus or extra-axial fluid collection.No areas of brai n edema or evidence of midline shift. The paranasal sinuses and mastoids are clear. The calvarium is intact. IMPRESSION: No acute intracranial abnormality.
[2021-02-16] MEDS: NA CHLORIDE 0.9% 1,000 ML IV SCH ×2 (01:27→14:04)
[2021-02-16 05:14] LABS: Absolute Lymphocytes (CBC) 0.8 K/uL (0.7-4.9); Basophils % 0.1 % (0-1.3); Hematocrit 35.9 % (39.6-49.0); Lymphocytes % 5.7 % (15.3-44.8)
[2021-02-16 05:33] LABS: Urine Appearance CLOUDY (Clear); Urine Bilirubin NEGATIVE (Negative); Urine Blood NEGATIVE (Negative); Urine Color YELLOW (Yellow); Urine Glucose NEGATIVE (Negative); Urine Protein 1+ (Negative); Urine Specific Gravity 1.015 (1.005-1.030); Urine Urobilinogen 0.2 mg/dL (0.2-1.0)
[2021-02-16 05:37] LABS: Urine Microscopic Reflex ORDER UMIC
[2021-02-16 05:48] LABS: Arterial Blood Carboxyhemoglob 0.8 % (0-1.5); Blood Gas Oxyhemoglobin 88.4 % (94-97); Blood O2 Saturation 90.2 % (92-98.5)
[2021-02-16 05:51] LABS: Albumin 2.3 g/dL (3.4-5.0); Bilirubin Total 1.1 mg/dL (0.2-1.0); Magnesium 2.7 mg/dL (1.8-2.4); Potassium 3.7 mmol/L (3.5-5.1); Protein, Total 6.4 g/dL (6.4-8.2); Troponin I 0.05 ng/mL (0.0-0.045)
[2021-02-16 06:09] LABS: Ferritin 1435.3 ng/mL (26-388)
[2021-02-16 06:25] LABS: Urine Amorphous Sediment 1+ /HPF (NONE SEEN); Urine Bacteria >50 /HPF (NONE SEEN); Urine Mucus 1+ /HPF (NONE SEEN); Urine RBC <5 /HPF (NONE SEEN)
[2021-02-16] MEDS: VITAMIN D 1000 UNIT TAB PO SCH (07:59)
[2021-02-16] MEDS: ASPIRIN EC 81 MG TAB PO SCH (07:59)
[2021-02-16] MEDS: APIXABAN 5 MG TABLET PO SCH ×2 (07:59→20:18)
[2021-02-16] MEDS: ZINC SULFATE 220 MG CAP PO SCH (08:00)
[2021-02-16] MEDS: ASCORBIC ACID 500 MG TABLET PO SCH ×4 (08:00→20:18)
[2021-02-16] MEDS: THIAMINE HCL 100 MG TABLET PO SCH (08:00)
[2021-02-16] MEDS: METHYLPREDNISOLONE 40 MG INJ IV SCH ×3 (08:01→20:17)
--- NOTE | 2021-02-16 08:18 | P.CNS ---
Date of Consult: 02/16/21 Reason for Consult: COVID penkatelynn Primary Care Provider: None Chief Complaint: COVID-19 pneumonia History of Present Illness: AGe 70 AW resp failure fromCOVID, Dx 2 wks ago/ Doing better Allergies No Known Allergies Allergy (Verified 10/20/16 22:44) Home Medications: Aspirin Chewable [Aspirin Chewable*] 81 mg PO DAILY 10/20/16 allopurinoL [Zyloprim*] 100 mg PO DAILY 10/20/16 Atorvastatin Calcium [Lipitor] 80 mg PO DAILY 02/16/21 Clopidogrel Bisulfate [Clopidogrel] 75 mg PO DAILY 02/16/21 Lisinopril [Zestril] 2.5 mg PO DAILY 02/16/21 Metoprolol Tartrate [Lopressor*] 25 mg PO DAILY 02/16/21 - Past Medical/Surgical History Diabetic: No -: Gout -: CAD status post stent -: Hypertension -: Stent Psychosocial/ Personal History: 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 , 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 - Family History Mother Medical History: Cancer Father Medical History: Heart disease - Social History Smoking Status: Never smoker Alcohol use: Yes CD- Drugs: No Caffeine use: Yes Place of Residence: Home Review of Systems General: Weakness Respiratory: Shortness of Breath Physical Examination Temp Pulse Resp BP Pulse Ox 99.8 F 82 23 H 130/76 98 02/16/21 04:00 02/16/21 04:00 02/16/21 04:00 02/16/21 04:00 02/16/21 04:00 General: Alert, In no apparent distress, Oriented x3, Cooperative Laboratory Data (last 24 hrs) 02/15/21 19:37: PT 15.3 H, INR 1.33, APTT 27.6 02/15/21 19:37: WBC 20.30 H*, Hgb 12.4 L, Hct 37.1 L, Plt Count 237 02/15/21 19:37: Sodium 133 L, Potassium 3.8, BUN 31 H, Creatinine 1.79 H, Glucose 144 H, Total Bilirubin 2.0 H, AST 148 H, ALT 135 H, Alkaline Phosphatase 294 H, Lipase 105 - Problems (1) Pneumonia due to COVID-19 virus Current Visit: Yes Status: Acute Plan: PT AW COVIDpenumonia and resp failure/ CW Eliquis and steroids BArcitinib/ DC AB.ECHO with doppler/ WEan down on O2/ Labs reviewed
[2021-02-16] MEDS ORDERED: METHYLPREDNISOLONE 40 MG INJ IV SCH (09:00)
--- NOTE | 2021-02-16 12:02 | P.PN ---
Subjective Date of Service: 02/16/21 Primary Care Provider: None Chief Complaint: COVID-19 pneumonia Patient lying comfortably in bed. He denies shortness of breath. He is on high-flow oxygen, 95% FiO2 Physical Examination - Vital Signs Temperature: 97.7 F Blood Pressure: 110/56 Pulse: 68 Respirations: 22 Pulse Ox (%): 92 - Physical Exam General: Alert, In no apparent distress HEENT: Mucous membr. moist/pink Respiratory: Other (Nonlabored breathing) Cardiovascular: Regular rate/rhythm, Normal S1 S2 Gastrointestinal: Soft and benign, Non-distended Musculoskeletal: No swelling Integumentary: No rashes Neurological: Normal strength at 5/5 x4 extr - Studies Laboratory Data (last 24 hrs) 02/15/21 19:37: PT 15.3 H, INR 1.33, APTT 27.6 02/15/21 19:37: WBC 20.30 H*, Hgb 12.4 L, Hct 37.1 L, Plt Count 237 02/15/21 19:37: Sodium 133 L, Potassium 3.8, BUN 31 H, Creatinine 1.79 H, Glucose 144 H, Total Bilirubin 2.0 H, AST 148 H, ALT 135 H, Alkaline Phosphatase 294 H, Lipase 105 Microbiology Data (last 24 hrs): 02/15/21 19:45 Nasopharnyx Influenza Type A Antigen Screen - Final 02/15/21 19:45 Nasopharnyx Influenza Type B Antigen Screen - Final 02/15/21 19:45 Throat Group A Streptococcus Rapid Screen - Final Assessment And Plan - Current Problems (Diagnosis) (1) Acute respiratory failure with hypoxia Current Visit: Yes Status: Acute (2) Pneumonia due to COVID-19 virus Current Visit: Yes Status: Acute (3) Chronic kidney disease, stage 3 Current Visit: Yes Status: Acute - Plan Continue treatment per COVID protocol. IV steroid, bronchodilators, vitamin supplementation, zinc supplement Pulmonary input appreciated Patient started on Baracitinib. D-dimer markedly elevated. Eliquis for DVT prophylaxis Wean oxygen as tolerated. Continue home medications for gout. Monitor renal function.
[2021-02-16] MEDS: BARICITINIB 2 MG TABLET PO SCH (14:01)
[2021-02-16] MEDS ORDERED: AZITHROMYCIN IV 500 MG in NA CHLORIDE 0.9% 250 ML IVPB SCH (20:00)
[2021-02-16] MEDS: ATORVASTATIN 80 MG TAB PO SCH (20:17)
[2021-02-16] MEDS: FLUTICASONE 50MCG NASAL SPRAY NAS PRN (20:22)
[2021-02-16] MEDS ORDERED: FLUTICASONE 50MCG NASAL SPRAY NAS SCH (21:00)
[2021-02-16] MEDS ORDERED: CEFTRIAXONE/SWI 1gm 1 GM/10 ML SYR IV SCH (21:00)
[2021-02-17] MEDS: NA CHLORIDE 0.9% 1,000 ML IV SCH ×2 (03:55→13:58)
[2021-02-17 04:51] LABS: Basophils % 0.1 % (0-1.3); Hematocrit 32.7 % (39.6-49.0); Lymphocytes % 6.5 % (15.3-44.8); MPV 8.4 fL (7.6-11.3); RBC Red Blood Cell Count 3.79 M/uL (4.33-5.43)
[2021-02-17 05:22] LABS: Albumin 2.1 g/dL (3.4-5.0); Bilirubin Total 0.6 mg/dL (0.2-1.0); C-Reactive Protein 98.8 mg/L (<3.00); Ferritin 1266.3 ng/mL (26-388); Magnesium 2.8 mg/dL (1.8-2.4); Potassium 3.6 mmol/L (3.5-5.1); Protein, Total 5.7 g/dL (6.4-8.2)
[2021-02-17] MEDS: ASCORBIC ACID 500 MG TABLET PO SCH ×4 (08:26→20:36)
[2021-02-17] MEDS: ASPIRIN EC 81 MG TAB PO SCH (08:26)
[2021-02-17] MEDS: ZINC SULFATE 220 MG CAP PO SCH (08:26)
[2021-02-17] MEDS: VITAMIN D 1000 UNIT TAB PO SCH (08:26)
[2021-02-17] MEDS: APIXABAN 5 MG TABLET PO SCH ×2 (08:26→20:36)
[2021-02-17] MEDS: THIAMINE HCL 100 MG TABLET PO SCH (08:27)
[2021-02-17] MEDS: METHYLPREDNISOLONE 40 MG INJ IV SCH ×3 (08:27→20:37)
[2021-02-17] MEDS: BARICITINIB 2 MG TABLET PO SCH (08:29)
[2021-02-17] MEDS: FLUTICASONE 50MCG NASAL SPRAY NAS PRN (08:31)
[2021-02-17] MEDS ORDERED: POTASSIUM 25 MEQ EFFERV TAB PO ONE (09:00)
[2021-02-17] MEDS ORDERED: PNEUMOCOCCAL VACCINE 0.5 ML IMVAC ONE (11:00)
--- NOTE | 2021-02-17 11:53 | P.PN ---
Subjective Date of Service: 02/17/21 Primary Care Provider: None Chief Complaint: COVID-19 pneumonia Subjective: Improving (Feeling better) Review of Systems General: Weakness Respiratory: Shortness of Breath Physical Examination - Vital Signs Temperature: 97.9 F Blood Pressure: 119/64 Pulse: 70 Respirations: 17 Pulse Ox (%): 90 - Physical Exam General: Alert, In no apparent distress, Oriented x3 - Studies Microbiology Data (last 24 hrs): 02/15/21 19:45 Throat Culture & Sensitivity - Final NORMAL UPPER RESPIRATORY MIN GROWN. Assessment & Plan - Problems (Diagnosis) (1) Pneumonia due to COVID-19 virus Current Visit: Yes Status: Acute Plan: Doign much better CW wean down on O2/ Renal fucntion improving/ Nc in [place]
--- NOTE | 2021-02-17 12:47 | P.PN ---
Subjective Date of Service: 02/17/21 Primary Care Provider: None Chief Complaint: COVID-19 pneumonia Patient denies any shortness of breath. FiO2 weaned down to 75%. Physical Examination - Vital Signs Temperature: 99.1 F Blood Pressure: 108/62 Pulse: 53 Respirations: 20 Pulse Ox (%): 93 - Physical Exam General: Alert, In no apparent distress HEENT: Mucous membr. moist/pink Neck: JVD distended Respiratory: Other (No labored breathing) Cardiovascular: No edema, Regular rate/rhythm, Normal S1 S2 Gastrointestinal: Soft and benign, Non-distended Musculoskeletal: No swelling Integumentary: No rashes Neurological: Normal strength at 5/5 x4 extr - Studies Microbiology Data (last 24 hrs): 02/15/21 19:45 Throat Culture & Sensitivity - Final NORMAL UPPER RESPIRATORY MIN GROWN. Assessment And Plan - Current Problems (Diagnosis) (1) Acute respiratory failure with hypoxia Current Visit: Yes Status: Acute (2) Pneumonia due to COVID-19 virus Current Visit: Yes Status: Acute (3) Chronic kidney disease, stage 3 Current Visit: Yes Status: Acute - Plan Continue treatment per COVID protocol. IV steroid, bronchodilators, vitamin supplementation, zinc supplement Dr. Castro is following On Baracitinib. D-dimer markedly elevated. Continue Eliquis for DVT prophylaxis Wean oxygen as tolerated. Continue home medications for gout. Monitor renal function. Monitor inflammatory markers-CRP, ferritin and D-dimer.
[2021-02-17] MEDS: ATORVASTATIN 80 MG TAB PO SCH (20:38)
[2021-02-18] MEDS: NA CHLORIDE 0.9% 1,000 ML IV SCH (03:09)
[2021-02-18 04:53] LABS: Absolute Lymphocytes (CBC) 0.8 K/uL (0.7-4.9); Basophils % 0.2 % (0-1.3); Hematocrit 32.7 % (39.6-49.0); Lymphocytes % 5.6 % (15.3-44.8); RBC Red Blood Cell Count 3.71 M/uL (4.33-5.43)
[2021-02-18 05:34] LABS: Albumin 2.2 g/dL (3.4-5.0); Bilirubin Total 0.7 mg/dL (0.2-1.0); C-Reactive Protein 56.8 mg/L (<3.00); Ferritin 1235.7 ng/mL (26-388); Magnesium 2.7 mg/dL (1.8-2.4); Potassium 3.6 mmol/L (3.5-5.1); Protein, Total 5.7 g/dL (6.4-8.2)
[2021-02-18] MEDS ORDERED: POTASSIUM 25 MEQ EFFERV TAB PO ONE (06:14)
[2021-02-18] MEDS: METHYLPREDNISOLONE 40 MG INJ IV SCH ×3 (08:38→20:06)
[2021-02-18] MEDS: VITAMIN D 1000 UNIT TAB PO SCH (08:40)
[2021-02-18] MEDS: ASPIRIN EC 81 MG TAB PO SCH (08:40)
[2021-02-18] MEDS: THIAMINE HCL 100 MG TABLET PO SCH (08:40)
[2021-02-18] MEDS: APIXABAN 5 MG TABLET PO SCH ×2 (08:40→20:06)
[2021-02-18] MEDS: ASCORBIC ACID 500 MG TABLET PO SCH ×4 (08:40→20:06)
[2021-02-18] MEDS: ZINC SULFATE 220 MG CAP PO SCH (08:40)
[2021-02-18] MEDS: BARICITINIB 2 MG TABLET PO SCH (08:42)
--- NOTE | 2021-02-18 13:34 | P.PN ---
Subjective Date of Service: 02/18/21 Primary Care Provider: None Chief Complaint: COVID-19 pneumonia And has no complain today. He is tolerating less FiO2. FiO2 is down to 55% He denies shortness of breath. He has good oral intake. Physical Examination - Vital Signs Temperature: 98.3 F Blood Pressure: 100/50 Pulse: 60 Respirations: 16 Pulse Ox (%): 94 - Physical Exam General: In no apparent distress, Oriented x3 HEENT: Mucous membr. moist/pink Neck: JVD not distended Respiratory: Other (Nonlabored breathing.) Cardiovascular: Regular rate/rhythm, Normal S1 S2 Gastrointestinal: Non-distended Musculoskeletal: No swelling Integumentary: No rashes Neurological: Other (Nonfocal) - Studies Microbiology Data (last 24 hrs): 02/15/21 04:15 Clean Catch Urine [place] Count - Final No growth. 02/15/21 04:15 Clean Catch Urine - Final No growth. 02/15/21 19:45 Throat Culture & Sensitivity - Final NORMAL UPPER RESPIRATORY MIN GROWN. Assessment And Plan - Current Problems (Diagnosis) (1) Acute respiratory failure with hypoxia Current Visit: Yes Status: Acute (2) Pneumonia due to COVID-19 virus Current Visit: Yes Status: Acute (3) Chronic kidney disease, stage 3 Current Visit: Yes Status: Acute - Plan Continue treatment per COVID protocol. Continue IV steroid, bronchodilators, vitamin supplementation, zinc supplement. Patient is clinically improving slowly Dr. Castro is following On Baracitinib. D-dimer markedly elevated. Continue Eliquis for DVT prophylaxis Wean HFNC as tolerated. Continue home medications for gout. Monitor renal function. Continue to monitor inflammatory markers-CRP, ferritin and D-dimer.
[2021-02-18] MEDS: ATORVASTATIN 80 MG TAB PO SCH (20:06)
[2021-02-19 05:17] LABS: Absolute Lymphocytes (CBC) 0.9 K/uL (0.7-4.9); Basophils % 0.2 % (0-1.3); Lymphocytes % 6.6 % (15.3-44.8); MPV 7.6 fL (7.6-11.3); RBC Red Blood Cell Count 3.67 M/uL (4.33-5.43)
[2021-02-19 05:35] LABS: Potassium 4.4 mmol/L (3.5-5.1)
[2021-02-19 07:20] LABS: Blood Morphology Comment NOT SEEN (NOT SEEN); Platelet Estimate ADEQ
--- NOTE | 2021-02-19 08:54 | ECHO ---
HEIGHT: 5 ft 8 in WEIGHT: 195 lb 0 oz DATE OF STUDY: 02/16/[address]: Jonathan Castro MD 2-DIMENSIONAL: YES M.MODE: YES DOPPLER: YES COLOR FLOW: YES TDS: NO PORTABLE: YES DEFINITY: NO BUBBLE STUDY: NO DIAGNOSIS: RESPIRATORY FAILURE CARDIAC HISTORY: CATHERIZATION: YES SURGERY: NO PROSTHETIC VALVE: NO PACEMAKER: NO MEASUREMENTS (cm) DIASTOLIC (NORMALS) SYSTOLIC (NORMALS) IVSd 1.1 (0.6-1.2) LA Diam 3.5 (1.9-4.0) LVEF 60-65% LVIDd 4.3 (3.5-5.7) LVIDs 2.6 (2.0-3.5) %FS 40% LVPWd 1.2 (0.6-1.2) Ao Diam (2.0-3.7) 2 DIMENSIONAL ASSESSMENT: RIGHT ATRIUM: NORMAL LEFT ATRIUM: NORMAL RIGHT VENTRICLE: NORMAL LEFT VENTRICLE: NORMAL TRICUSPID VALVE: NORMAL MITRAL VALVE: PULMONIC VALVE: NORMAL AORTIC VALVE: NORMAL PERICARDIAL EFFUSION: NONE AORTIC ROOT: NORMAL LEFT VENTRICULAR WALL MOTION: NORMAL DOPPLER/COLOR FLOW: SEE BELOW. COMMENTS: NORMAL LEFT VENTRICULAR EJECTION 60-65%. DIASTOLIC DYSFUNCTION. MILD MITRAL AND TRICUSPID REGURGITATION. TECHNOLOGIST: Michael COTTO
[2021-02-19] MEDS: VITAMIN D 1000 UNIT TAB PO SCH (10:19)
[2021-02-19] MEDS: BARICITINIB 2 MG TABLET PO SCH (10:19)
[2021-02-19] MEDS: ZINC SULFATE 220 MG CAP PO SCH (10:19)
[2021-02-19] MEDS: APIXABAN 5 MG TABLET PO SCH ×2 (10:19→19:42)
[2021-02-19] MEDS: METHYLPREDNISOLONE 40 MG INJ IV SCH ×3 (10:19→19:42)
[2021-02-19] MEDS: THIAMINE HCL 100 MG TABLET PO SCH (10:20)
[2021-02-19] MEDS: ASPIRIN EC 81 MG TAB PO SCH (10:20)
[2021-02-19] MEDS: BENZONATATE 100 MG CAP PO PRN (10:20)
[2021-02-19] MEDS: ASCORBIC ACID 500 MG TABLET PO SCH ×4 (10:20→19:42)
--- NOTE | 2021-02-19 14:15 | P.PN ---
Subjective Date of Service: 02/19/21 Primary Care Provider: None Chief Complaint: COVID-19 pneumonia And has no complain today. He states he feels better yet he is currently requiring 80% FiO2. He denies shortness of breath. Physical Examination - Vital Signs Temperature: 97.7 F Blood Pressure: 123/64 Pulse: 67 Respirations: 19 Pulse Ox (%): 100 - Physical Exam General: Alert, In no apparent distress HEENT: Mucous membr. moist/pink Respiratory: Other (Nonlabored breathing) Cardiovascular: No edema Gastrointestinal: Soft and benign, Non-distended Musculoskeletal: No swelling Integumentary: No rashes Neurological: Normal strength at 5/5 x4 extr - Studies Microbiology Data (last 24 hrs): 02/15/21 04:15 Clean Catch Urine [place] Count - Final No growth. 02/15/21 04:15 Clean Catch Urine - Final No growth. Assessment And Plan - Current Problems (Diagnosis) (1) Acute respiratory failure with hypoxia Current Visit: Yes Status: Acute (2) Pneumonia due to COVID-19 virus Current Visit: Yes Status: Acute (3) Chronic kidney disease, stage 3 Current Visit: Yes Status: Acute - Plan Continue treatment per COVID protocol. Continue IV steroid, bronchodilators, vitamin supplementation, zinc supplement. Dr. Castro is following On Baracitinib. D-dimer markedly elevated. Continue Eliquis for DVT prophylaxis Wean HFNC as tolerated. Monitor renal function.
[2021-02-19] MEDS: ATORVASTATIN 80 MG TAB PO SCH (19:42)
--- NOTE | 2021-02-19 21:14 | P.PN ---
Subjective Date of Service: 02/19/21 Primary Care Provider: None Chief Complaint: COVID-19 pneumonia stable on high concnetration of o2 Review of Systems General: Weakness Respiratory: Shortness of Breath Physical Examination - Vital Signs Temperature: 97.2 F Blood Pressure: 145/87 Pulse: 67 Respirations: 20 Pulse Ox (%): 100 Assessment & Plan - Problems (Diagnosis) (1) Pneumonia due to COVID-19 virus Current Visit: Yes Status: Acute Plan: Still on high concentration of O2/ on max [place]/ labs reviewed
[2021-02-20 03:54] LABS: Absolute Lymphocytes (CBC) 0.9 K/uL (0.7-4.9); Basophils % 0.1 % (0-1.3); Hematocrit 31.1 % (39.6-49.0); Lymphocytes % 5.8 % (15.3-44.8); MPV 7.4 fL (7.6-11.3); RBC Red Blood Cell Count 3.58 M/uL (4.33-5.43)
[2021-02-20 04:26] LABS: Albumin 2.1 g/dL (3.4-5.0); Bilirubin Total 0.6 mg/dL (0.2-1.0); C-Reactive Protein 25.7 mg/L (<3.00); Ferritin 904.9 ng/mL (26-388); Magnesium 2.9 mg/dL (1.8-2.4); Potassium 4.8 mmol/L (3.5-5.1); Protein, Total 5.1 g/dL (6.4-8.2)
--- NOTE | 2021-02-20 07:26 | P.PN ---
Subjective Date of Service: 02/20/21 Primary Care Provider: None Chief Complaint: COVID-19 pneumonia Subjective: Other (no acute events overnight. patient feels better this morning, still very SOB/EDWARDS but feels improvement. appetite is well, voiding without issue, reports slight swelling in lower legs) Review of Systems 10-point ROS is otherwise unremarkable Physical Examination - Vital Signs Temperature: 96.5 F Blood Pressure: 116/62 Pulse: 65 Respirations: 25 Pulse Ox (%): 87 Assessment & Plan Physician Review Additional Text: Physical Exam General: Alert, In no apparent distress HEENT: Mucous membr. moist/pink, sclear anicteric Respiratory: nonlabored respirations on hFNC Cardiovascular: regular rate/rhythm, trace edema b/l to ankles Gastrointestinal: Soft nontender, nondistended Musculoskeletal: No joint swelling Integumentary: No rashes Assessment And Plan Acute hypoxemic respiratory failure secondary to COVID-19 pneumonia SAULO on CKD 3 Continue treatment per COVID protocol - IV steroid, bronchodilators, vitamin supplementation, zinc supplement. Dr. Castro is following. On Baracitinib. D-dimer markedly elevated but improving inflammatory markers improving still requiring high levels of oxygen to maintain O2 sat > 90% Continue Eliquis for DVT prophylaxis Wean HFNC/BIPAP as tolerated. Cultures negative Monitor renal function. VTE: eliquis Code: full Dispo: anticipate dc home >2 days Time Spent Managing Pts Care (In Minutes): 35
--- NOTE | 2021-02-20 07:37 | RAD REPORT ---
EXAM DESCRIPTION: RAD - Chest Single View - 02/20/2021 7:21 am CLINICAL HISTORY: resp failure COMPARISON: Chest Single View dated 02/15/2021; Chest Single View dated 10/20/2016 FINDINGS: Questioned increasing airspace disease in the right lung compared with prior. Multifocal a irspace opacities in left lung is similar. The heart size is within normal limits.No acute osseous ab normality. No significant pleural effusions or pneumothorax. IMPRESSION: Right lung aeration appears marginally worsened but the left lung remains similar. Findi ngs remain consistent with multifocal pneumonia.
[2021-02-20] MEDS: ASCORBIC ACID 500 MG TABLET PO SCH ×4 (07:52→19:49)
[2021-02-20] MEDS: VITAMIN D 1000 UNIT TAB PO SCH (07:52)
[2021-02-20] MEDS: ASPIRIN EC 81 MG TAB PO SCH (07:52)
[2021-02-20] MEDS: METHYLPREDNISOLONE 40 MG INJ IV SCH ×3 (07:53→19:49)
[2021-02-20] MEDS: APIXABAN 5 MG TABLET PO SCH ×2 (07:53→19:49)
[2021-02-20] MEDS: THIAMINE HCL 100 MG TABLET PO SCH (07:53)
[2021-02-20] MEDS: ZINC SULFATE 220 MG CAP PO SCH (07:53)
[2021-02-20] MEDS: BARICITINIB 2 MG TABLET PO SCH (07:53)
[2021-02-20] MEDS: ATORVASTATIN 80 MG TAB PO SCH (19:49)
--- NOTE | 2021-02-21 06:50 | P.PN ---
Subjective Date of Service: 02/21/21 Primary Care Provider: None Chief Complaint: COVID-19 pneumonia Subjective: Improving (down to 6L NC yesterday / overnight, desaturated to 70s when getting to bedside chair this morning, placed on HFNC. feeling better, mild cough, voiding/+BM) Review of Systems 10-point ROS is otherwise unremarkable Physical Examination - Vital Signs Temperature: 97.9 F Blood Pressure: 124/63 Pulse: 76 Respirations: 24 Pulse Ox (%): 89 - Studies Microbiology Data (last 24 hrs): 02/15/21 19:45 Blood - Blood Aerobic Blood Culture - Final No growth in 5 days. 02/15/21 19:45 Blood - Blood Anaerobic Blood Culture - Final No growth in 5 days. 02/15/21 19:37 Blood - Blood Aerobic Blood Culture - Final No growth in 5 days. 02/15/21 19:37 Blood - Blood Anaerobic Blood Culture - Final No growth in 5 days. Assessment & Plan Physician Review Additional Text: Physical Exam General: Alert, In no apparent distress, sitting up at bedside chair HEENT: sclear anicteric, normal conjunctiva Respiratory: mildly labored respirations on HFNC Cardiovascular: regular rate/rhythm, trace edema b/l to ankles Gastrointestinal: Soft nontender, nondistended Assessment And Plan Acute hypoxemic respiratory failure secondary to COVID-19 pneumonia SAULO on CKD 3 Continue treatment per COVID protocol - IV steroid, bronchodilators, vitamin supplementation, zinc supplement. Dr. Castro is following. On Baracitinib. D-dimer markedly elevated but improving inflammatory markers improving down to 6L last night, placed back on HFNC this morning after ambulating Continue Eliquis for DVT prophylaxis Wean O2 as tolerated Cultures negative renal function stable VTE: eliquis Code: full Dispo: anticipate dc home in ~2-3 days Time Spent Managing Pts Care (In Minutes): 40
[2021-02-21] MEDS: APIXABAN 5 MG TABLET PO SCH ×2 (08:01→22:25)
[2021-02-21] MEDS: THIAMINE HCL 100 MG TABLET PO SCH (08:01)
[2021-02-21] MEDS: ASPIRIN EC 81 MG TAB PO SCH (08:01)
[2021-02-21] MEDS: VITAMIN D 1000 UNIT TAB PO SCH (08:01)
[2021-02-21] MEDS: METHYLPREDNISOLONE 40 MG INJ IV SCH (08:01)
[2021-02-21] MEDS: ZINC SULFATE 220 MG CAP PO SCH (08:01)
[2021-02-21] MEDS: ASCORBIC ACID 500 MG TABLET PO SCH ×4 (08:01→22:23)
[2021-02-21] MEDS: BARICITINIB 2 MG TABLET PO SCH (08:03)
--- NOTE | 2021-02-21 10:43 | P.PN ---
Subjective Date of Service: 02/21/21 Primary Care Provider: None Chief Complaint: COVID-19 pneumonia Doign well/ Still hypoxic and weak Review of Systems General: Weakness Respiratory: Shortness of Breath Physical Examination - Vital Signs Temperature: 97.9 F Blood Pressure: 124/63 Pulse: 76 Respirations: 24 Pulse Ox (%): 89 - Physical Exam General: Alert, In no apparent distress, Oriented x3 - Studies Microbiology Data (last 24 hrs): 02/15/21 19:45 Blood - Blood Aerobic Blood Culture - Final No growth in 5 days. 02/15/21 19:45 Blood - Blood Anaerobic Blood Culture - Final No growth in 5 days. 02/15/21 19:37 Blood - Blood Aerobic Blood Culture - Final No growth in 5 days. 02/15/21 19:37 Blood - Blood Anaerobic Blood Culture - Final No growth in 5 days. Assessment & Plan - Problems (Diagnosis) (1) Pneumonia due to COVID-19 virus Current Visit: Yes Status: Acute Plan: Ding well/ Try O2 6 l/min again/ Reduce solumederol 80 bid
[2021-02-21] MEDS ORDERED: METHYLPREDNISOLONE 125 MG INJ IV SCH (14:00)
[2021-02-21] MEDS: ATORVASTATIN 40 MG TAB PO SCH (22:24)
[2021-02-21] MEDS: METHYLPREDNISOLONE 125 MG INJ IV SCH (22:26)
[2021-02-22 06:05] LABS: Absolute Lymphocytes (CBC) 0.6 K/uL (0.7-4.9); Basophils % 0.2 % (0-1.3); Hematocrit 37.7 % (39.6-49.0); Lymphocytes % 3.9 % (15.3-44.8); MPV 7.4 fL (7.6-11.3); RBC Red Blood Cell Count 4.27 M/uL (4.33-5.43)
[2021-02-22 06:21] LABS: Albumin 2.5 g/dL (3.4-5.0); Bilirubin Total 0.8 mg/dL (0.2-1.0); C-Reactive Protein 10.2 mg/L (<3.00); Ferritin 988.8 ng/mL (26-388); Magnesium 2.8 mg/dL (1.8-2.4); Potassium 4.3 mmol/L (3.5-5.1)
--- NOTE | 2021-02-22 07:31 | P.PN ---
Subjective Date of Service: 02/22/21 Primary Care Provider: None Chief Complaint: COVID-19 pneumonia Subjective: Improving (down to 4-6L NC, hypoxic with minimal movement, feeling better, good appetite) Review of Systems 10-point ROS is otherwise unremarkable Physical Examination - Vital Signs Temperature: 98.2 F Blood Pressure: 114/50 Pulse: 50 Respirations: 23 Pulse Ox (%): 88 Assessment & Plan Physician Review Additional Text: Physical Exam General: Alert, In no apparent distress, sitting up at bedside chair HEENT: sclera anicteric, normal conjunctiva Respiratory: mildly labored/tachypneic respirations on 6L NC Cardiovascular: regular rate/rhythm, occassional tachycardia 90-110, trace-1+ edema b/l to knees Gastrointestinal: Soft nontender, nondistended Assessment And Plan Acute hypoxemic respiratory failure secondary to COVID-19 pneumonia SAULO on CKD 3 Continue treatment per COVID protocol - IV steroid, bronchodilators, vitamin supplementation, zinc supplement. Dr. Castro is following. On Baracitinib. D-dimer markedly elevated but improving down to ~6L NC Continue Eliquis for DVT prophylaxis Wean O2 as tolerated Cultures negative renal function stable edema on exam, slight hypercarbia will start daily diamox VTE: eliquis Code: full Dispo: anticipate dc home in ~1-2 days Time Spent Managing Pts Care (In Minutes): 35
[2021-02-22] MEDS: APIXABAN 5 MG TABLET PO SCH ×2 (08:36→20:39)
[2021-02-22] MEDS: ASCORBIC ACID 500 MG TABLET PO SCH ×4 (08:36→20:39)
[2021-02-22] MEDS: ASPIRIN EC 81 MG TAB PO SCH (08:37)
[2021-02-22] MEDS: METHYLPREDNISOLONE 125 MG INJ IV SCH ×2 (08:37→20:39)
[2021-02-22] MEDS: VITAMIN D 1000 UNIT TAB PO SCH (08:37)
[2021-02-22] MEDS: ZINC SULFATE 220 MG CAP PO SCH (08:37)
[2021-02-22] MEDS: THIAMINE HCL 100 MG TABLET PO SCH (08:37)
[2021-02-22] MEDS: BARICITINIB 2 MG TABLET PO SCH (08:38)
[2021-02-22 10:27] LABS: Blood Morphology Comment NOT SEEN (NOT SEEN); Platelet Estimate INCR
[2021-02-22] MEDS: acetaZOLAMIDE 250 MG TAB PO SCH (12:35)
[2021-02-22] MEDS: ATORVASTATIN 40 MG TAB PO SCH (20:39)
[2021-02-22] MEDS: ENSURE HIGH PROTEIN 237 ML CAN PO SCH (20:40)
--- NOTE | 2021-02-22 21:24 | RAD REPORT ---
EXAM DESCRIPTION: RAD - Chest Single View - 02/22/2021 9:09 pm CLINICAL HISTORY: SOB, subq emphysema, COVID pneumonia COMPARISON: February 20 TECHNIQUE: AP portable chest image was obtained 02/22/2021 9:09 pm . FINDINGS: Bilateral interstitial and alveolar opacities are present. Right lung field with appears b franco aerated than the February 20 study. Subcutaneous emphysema is slightly worse. Heart and vasculat ure are normal. No measurable pleural effusion and no pneumothorax. No acute bony abnormality seen. N o acute aortic findings suspected. IMPRESSION: Partial clearing of the right lung field is since March 19 imaging. Worsening of subcutaneous emphysema in the neck and supraclavicular region.
[2021-02-23 06:55] LABS: Absolute Lymphocytes (CBC) 0.7 K/uL (0.7-4.9); Basophils % 0.3 % (0-1.3); Hematocrit 38.6 % (39.6-49.0); Lymphocytes % 3.9 % (15.3-44.8); MPV 7.5 fL (7.6-11.3); RBC Red Blood Cell Count 4.32 M/uL (4.33-5.43)
[2021-02-23 07:40] LABS: Albumin 2.6 g/dL (3.4-5.0); Bilirubin Total 0.7 mg/dL (0.2-1.0); C-Reactive Protein 6.8 mg/L (<3.00); Ferritin 909.4 ng/mL (26-388); Magnesium 2.7 mg/dL (1.8-2.4); Potassium 4.1 mmol/L (3.5-5.1); Protein, Total 6.1 g/dL (6.4-8.2)
--- NOTE | 2021-02-23 08:09 | P.PN ---
Subjective Date of Service: 02/23/21 Primary Care Provider: None Chief Complaint: COVID-19 pneumonia Subjective: Improving (subq emphysema developed last night, with discomfort, swelling in neck/lower face, otherwise feeling well) Review of Systems 10-point ROS is otherwise unremarkable Physical Examination - Vital Signs Temperature: 98.2 F Blood Pressure: 145/76 Pulse: 75 Respirations: 21 Pulse Ox (%): 96 Assessment & Plan Physician Review Additional Text: Physical Exam General: Alert, NAD, sitting up at bedside chair HEENT: sclera anicteric, normal conjunctiva, significant subcutaneous emphysema in neck/lower face Respiratory: mildly labored/tachypneic respirations on 6L NC Cardiovascular: regular rate/rhythm, trace-1+ edema b/l to knees Gastrointestinal: Soft nontender, nondistended Neuro: moving all extremities, normal affect Assessment And Plan Acute hypoxemic respiratory failure secondary to COVID-19 pneumonia SAULO on CKD 3 Subcutaneous Continue treatment per COVID protocol - IV steroid, bronchodilators, vitamin supplementation, zinc supplement. decrease steroid dose Dr. Castro is following. On Baracitinib. D-dimer markedly elevated but improving down to ~5-6L NC Continue Eliquis for DVT prophylaxis Wean O2 as tolerated Cultures negative renal function stable edema on exam, slight hypercarbia, started diamox on 02/22 PT consulted VTE: eliquis Code: full Dispo: anticipate dc home in ~1-2 days Time Spent Managing Pts Care (In Minutes): 35
[2021-02-23] MEDS: BARICITINIB 2 MG TABLET PO SCH (08:57)
[2021-02-23] MEDS: THIAMINE HCL 100 MG TABLET PO SCH (08:57)
[2021-02-23] MEDS: ASPIRIN EC 81 MG TAB PO SCH (08:58)
[2021-02-23] MEDS: VITAMIN D 1000 UNIT TAB PO SCH (08:58)
[2021-02-23] MEDS: APIXABAN 5 MG TABLET PO SCH ×2 (08:58→21:40)
[2021-02-23] MEDS: acetaZOLAMIDE 250 MG TAB PO SCH (08:58)
[2021-02-23] MEDS: ASCORBIC ACID 500 MG TABLET PO SCH ×4 (08:58→21:44)
[2021-02-23] MEDS: METHYLPREDNISOLONE 125 MG INJ IV SCH ×2 (08:58→21:44)
[2021-02-23] MEDS: ZINC SULFATE 220 MG CAP PO SCH (08:59)
--- NOTE | 2021-02-23 09:30 | RAD REPORT ---
EXAM DESCRIPTION: Virgent Single View02/23/2021 8:57 am CLINICAL HISTORY: Chest pain COMPARISON: 02/22/2021 FINDINGS: Bilateral subcutaneous emphysema without significant change. Pneumomediastinum unchanged Bilateral pulmonary opacities are unchanged. Heart is normal size
[2021-02-23 09:51] LABS: Platelet Estimate INCR; White Blood Cell Scan OK (OK)
[2021-02-23 09:52] LABS: Blood Morphology Comment NOT SEEN (NOT SEEN)
[2021-02-23] MEDS: ENSURE HIGH PROTEIN 237 ML CAN PO SCH ×2 (10:33→21:43)
[2021-02-23] MEDS: ATORVASTATIN 40 MG TAB PO SCH (21:44)
[2021-02-24 05:16] LABS: Absolute Lymphocytes (CBC) 0.6 K/uL (0.7-4.9); Basophils % 0.1 % (0-1.3); Hematocrit 35.9 % (39.6-49.0); Lymphocytes % 4.1 % (15.3-44.8); MPV 7.5 fL (7.6-11.3); RBC Red Blood Cell Count 4.03 M/uL (4.33-5.43)
[2021-02-24 05:46] LABS: C-Reactive Protein 3.57 mg/L (<3.00); Ferritin 819.5 ng/mL (26-388); Magnesium 2.7 mg/dL (1.8-2.4); Potassium 4.3 mmol/L (3.5-5.1)
--- NOTE | 2021-02-24 06:51 | P.PN ---
Subjective Date of Service: 02/24/21 Primary Care Provider: None Chief Complaint: COVID-19 pneumonia Subjective: Improving (doing better, subcutaneous emphysema significantly improved. on 4L NC) Review of Systems 10-point ROS is otherwise unremarkable Physical Examination - Vital Signs Temperature: 97.7 F Blood Pressure: 113/84 Pulse: 77 Respirations: 20 Pulse Ox (%): 90 Assessment & Plan Physician Review Additional Text: Physical Exam General: Alert, NAD HEENT: sclera anicteric, normal conjunctiva, moderate subcutaneous emphysema in lower face/neck Respiratory: mildly tachypneic respirations on 4L NC Cardiovascular: regular rate/rhythm, trace edema b/l to knees Gastrointestinal: Soft nontender, nondistended Neuro: moving all extremities, normal affect Assessment And Plan Acute hypoxemic respiratory failure secondary to COVID-19 pneumonia SAULO on CKD 3 Subcutaneous Emphysema Continue treatment per COVID protocol - IV steroid, bronchodilators, vitamin supplementation, zinc supplement. decreased steroid dose on 02/23 Dr. Castro is following. On Baracitinib. D-dimer markedly elevated but improving down to ~4-5L NC Continue Eliquis for DVT prophylaxis Wean O2 as tolerated Cultures negative renal function stable edema on exam, slight hypercarbia, started diamox on 02/22 PT consulted - improving needle decompression performed on b/l upper anterior chest for subcutaneous emphysema on 02/23 with improvement will leave to decomress x24hrs, can dc later today and watch for reaccumulation overnight VTE: eliquis Code: full Dispo: anticipate dc home tomorrow pending improvement / stability of subcutaneous emphysema Time Spent Managing Pts Care (In Minutes): 35
[2021-02-24] MEDS: ASPIRIN EC 81 MG TAB PO SCH (09:28)
[2021-02-24] MEDS: VITAMIN D 1000 UNIT TAB PO SCH (09:28)
[2021-02-24] MEDS: APIXABAN 5 MG TABLET PO SCH ×2 (09:28→20:07)
[2021-02-24] MEDS: METHYLPREDNISOLONE 125 MG INJ IV SCH ×2 (09:29→20:08)
[2021-02-24] MEDS: BARICITINIB 2 MG TABLET PO SCH (09:29)
[2021-02-24] MEDS: THIAMINE HCL 100 MG TABLET PO SCH (09:29)
[2021-02-24] MEDS: ASCORBIC ACID 500 MG TABLET PO SCH ×4 (09:29→20:09)
[2021-02-24] MEDS: ZINC SULFATE 220 MG CAP PO SCH (09:29)
[2021-02-24] MEDS: acetaZOLAMIDE 250 MG TAB PO SCH (09:29)
[2021-02-24] MEDS: ENSURE HIGH PROTEIN 237 ML CAN PO SCH ×2 (09:30→20:07)
[2021-02-24] MEDS: ATORVASTATIN 40 MG TAB PO SCH (20:08)
[2021-02-25 05:17] LABS: Absolute Lymphocytes (CBC) 0.6 K/uL (0.7-4.9); Basophils % 0.1 % (0-1.3); Hematocrit 36.1 % (39.6-49.0); Lymphocytes % 3.2 % (15.3-44.8); MPV 7.5 fL (7.6-11.3); RBC Red Blood Cell Count 4.08 M/uL (4.33-5.43)
[2021-02-25 05:36] LABS: ALT/SGPT 78 U/L (12-78); AST/SGOT 23 U/L (15-37); Albumin 2.5 g/dL (3.4-5.0); Alkaline Phosphatase 149 U/L (45-117); BUN Blood Urea Nitrogen 35 mg/dL (7-18); Bicarbonate 24 mmol/L (21-32); Bilirubin Total 0.8 mg/dL (0.2-1.0); Ferritin 827.2 ng/mL (26-388); Glucose Level 182 mg/dL (74-106); Magnesium 2.5 mg/dL (1.8-2.4); Potassium 3.8 mmol/L (3.5-5.1); Protein, Total 5.6 g/dL (6.4-8.2); Sodium Level 145 mmol/L (136-145)
[2021-02-25 05:40] LABS: C-Reactive Protein < 2.90 mg/L (<3.00)
--- NOTE | 2021-02-25 07:02 | P.PN ---
Subjective Date of Service: 02/25/21 Primary Care Provider: None Chief Complaint: COVID-19 pneumonia Subjective: Worsening (subcuatenous emphysema worsened overnight, chest up to b/l eyes. CXR difficult to eval for pneumo, CT ordered.) Review of Systems 10-point ROS is otherwise unremarkable Physical Examination - Vital Signs Temperature: 97.2 F Blood Pressure: 108/70 Pulse: 84 Respirations: 22 Pulse Ox (%): 89 Assessment & Plan Physician Review Additional Text: Physical Exam General: Alert, NAD HEENT: moderate subcutaneous emphysema in lower face/neck (worsened_ Respiratory: nonlabored on 4L NC Cardiovascular: regular rate/rhythm, trace edema b/l legs Gastrointestinal: Soft nontender, nondistended Neuro: moving all extremities, normal affect Assessment And Plan Acute hypoxemic respiratory failure secondary to COVID-19 pneumonia SAULO on CKD 3 Subcutaneous Emphysema Continue treatment per COVID protocol - IV steroid, bronchodilators, vitamin supplementation, zinc supplement. decreased steroid dose on 02/23 Dr. Castro is following. On Baracitinib. Continue Eliquis for DVT prophylaxis edema on exam, slight hypercarbia, started diamox on 02/22 PT consulted - improving needle decompression performed on b/l upper anterior chest for subcutaneous emphysema on 02/23 with improvement removed 02/24, however patient reaccumulated subcutaneous emphysema overnight. Needle decompression placed on b/l anterior chest, mild oozing from skin, had initial improvement of subq emphysema, however angiocath clotted, removed pressure dressing placed on L anterior chest 16Fr fenestrated angiocath placed in R anterior chest, subclavicular, with improvement, no bleed, will leave in VTE: eliquis Code: full Dispo: anticipate dc home in 2-3 days Time Spent Managing Pts Care (In Minutes): 40
[2021-02-25] MEDS: METHYLPREDNISOLONE 125 MG INJ IV SCH ×2 (08:25→21:27)
[2021-02-25] MEDS: VITAMIN D 1000 UNIT TAB PO SCH (08:28)
[2021-02-25] MEDS: ASCORBIC ACID 500 MG TABLET PO SCH ×3 (08:29→21:27)
[2021-02-25] MEDS: acetaZOLAMIDE 250 MG TAB PO SCH (08:29)
[2021-02-25] MEDS: ASPIRIN EC 81 MG TAB PO SCH (08:29)
[2021-02-25] MEDS: THIAMINE HCL 100 MG TABLET PO SCH (08:29)
[2021-02-25] MEDS: APIXABAN 5 MG TABLET PO SCH ×2 (08:29→21:26)
[2021-02-25] MEDS: ZINC SULFATE 220 MG CAP PO SCH (08:30)
[2021-02-25] MEDS: ENSURE HIGH PROTEIN 237 ML CAN PO SCH ×2 (08:34→21:30)
[2021-02-25] MEDS: BARICITINIB 2 MG TABLET PO SCH (08:35)
--- NOTE | 2021-02-25 08:40 | RAD REPORT ---
EXAM DESCRIPTION: RAD - Chest Single View - 02/24/2021 10:12 pm CLINICAL HISTORY: worsening subq emphysema, concern for pneumothorax COMPARISON: Chest Single View dated 02/23/2021; Chest Single View dated 02/22/2021; Chest Single View da afia 02/20/2021; Chest Single View dated 02/15/2021 FINDINGS: Severe bilateral widespread airspace disease. Pneumo mediastinum and subcutaneous emphysem a noted. The pneumomediastinum is similar. Increasing subcutaneous emphysema is noted. The heart size is within normal limits.No acute osseous abnormality. No significant pleural effusions or pneumothor ax. IMPRESSION: Similar widespread bilateral airspace disease concerning for multifocal pneumonia. Subcu taneous emphysema and pneumomediastinum again noted but the subcutaneous emphysema is increased. .
[2021-02-25] MEDS: ATORVASTATIN 40 MG TAB PO SCH (21:26)
--- NOTE | 2021-02-26 06:05 | P.PN ---
Subjective Date of Service: 02/26/21 Primary Care Provider: None Chief Complaint: COVID-19 pneumonia Subjective: No new changes (feeling well, feels subq emphysema has remained stable since last night, no new changes) Review of Systems 10-point ROS is otherwise unremarkable Physical Examination - Vital Signs Temperature: 98.2 F Blood Pressure: 108/58 Pulse: 91 Respirations: 19 Pulse Ox (%): 90 Assessment & Plan Physician Review Additional Text: Physical Exam General: Alert, NAD HEENT: moderate subcutaneous emphysema in lower face/neck bilaterally, R>L on face Respiratory: nonlabored on 4L NC Cardiovascular: regular rate/rhythm, trace edema b/l legs Gastrointestinal: Soft nontender, nondistended Neuro: moving all extremities, normal affect Assessment And Plan Acute hypoxemic respiratory failure secondary to COVID-19 pneumonia SAULO on CKD 3, improved Subcutaneous Emphysema Continue treatment per COVID protocol - IV steroid, bronchodilators, vitamin supplementation, zinc supplement. decreased steroid dose on 02/23 Dr. Castro is following. On Baracitinib. Continue Eliquis for DVT prophylaxis edema on exam, slight hypercarbia, started diamox on 02/22 PT consulted - improving needle decompression performed on b/l upper anterior chest for subcutaneous emphysema on 02/23 with improvement removed 02/24, however patient reaccumulated subcutaneous emphysema overnight. Needle decompression placed on b/l anterior chest, mild oozing from skin, had initial improvement of subq emphysema, however angiocath clotted, removed pressure dressing placed on L anterior chest 16Fr fenestrated angiocath placed in R anterior chest, subclavicular, with improvement of emphysema in chest, no bleed, may have clotted as well, leave in overnight VTE: eliquis Code: full Dispo: anticipate dc home in 1-2 days Time Spent Managing Pts Care (In Minutes): 35
[2021-02-26 06:13] LABS: MPV 7.3 fL (7.6-11.3); RBC Red Blood Cell Count 4.21 M/uL (4.33-5.43)
[2021-02-26 06:47] LABS: Ferritin 832.7 ng/mL (26-388); Magnesium 2.5 mg/dL (1.8-2.4)
--- NOTE | 2021-02-26 08:09 | RAD REPORT ---
EXAM DESCRIPTION: Becky Single View02/26/2021 7:10 am CLINICAL HISTORY: Shortness of breath COMPARISON: February 24, 2021 FINDINGS: Worsening in the extensive bilateral subcutaneous emphysema. Pneumomediastinum persists. No significant change in diffuse bilateral pulmonary opacities. IMPRESSION: Worsening in the extensive bilateral subcutaneous emphysema
[2021-02-26] MEDS: ENSURE HIGH PROTEIN 237 ML CAN PO SCH ×2 (09:00→21:00)
[2021-02-26] MEDS: ASPIRIN EC 81 MG TAB PO SCH (09:23)
[2021-02-26] MEDS: ZINC SULFATE 220 MG CAP PO SCH (09:23)
[2021-02-26] MEDS: VITAMIN D 1000 UNIT TAB PO SCH (09:23)
[2021-02-26] MEDS: acetaZOLAMIDE 250 MG TAB PO SCH (09:23)
[2021-02-26] MEDS: APIXABAN 5 MG TABLET PO SCH ×2 (09:23→21:00)
[2021-02-26] MEDS: THIAMINE HCL 100 MG TABLET PO SCH (09:23)
[2021-02-26] MEDS: ASCORBIC ACID 500 MG TABLET PO SCH ×4 (09:23→21:00)
[2021-02-26] MEDS: METHYLPREDNISOLONE 125 MG INJ IV SCH (09:23)
[2021-02-26] MEDS: BARICITINIB 2 MG TABLET PO SCH (09:24)
--- NOTE | 2021-02-26 13:05 | P.PN ---
Subjective Date of Service: 02/26/21 Primary Care Provider: None Chief Complaint: COVID-19 pneumonia Improving ambulating /Sub Q empheysema. Nasal cannula O2 Review of Systems General: Weakness Physical Examination - Vital Signs Temperature: 98.2 F Blood Pressure: 116/73 Pulse: 92 Respirations: 19 Pulse Ox (%): 92 - Physical Exam General: Alert, In no apparent distress, Oriented x3, Other (SQ emphysema) Assessment & Plan - Problems (Diagnosis) (1) Pneumonia due to COVID-19 virus Current Visit: Yes Status: Acute Plan: Doign much better/ on NC o2. S emphysema. Angio cath x2. Change to po pred/ DC Barcitinib
[2021-02-26] MEDS: ATORVASTATIN 40 MG TAB PO SCH (21:00)
[2021-02-26] MEDS: predniSONE 20 MG TAB PO SCH (21:00)
[2021-02-26] MEDS: MELATONIN 5 MG TABLET PO PRN (21:29)
[2021-02-27 06:36] LABS: Hematocrit 41.1 % (39.6-49.0); MPV 7.5 fL (7.6-11.3); RBC Red Blood Cell Count 4.55 M/uL (4.33-5.43)
[2021-02-27 06:46] LABS: Magnesium 2.7 mg/dL (1.8-2.4); Potassium 4.5 mmol/L (3.5-5.1)
[2021-02-27] MEDS: ZINC SULFATE 220 MG CAP PO SCH (09:52)
[2021-02-27] MEDS: ASCORBIC ACID 500 MG TABLET PO SCH ×4 (09:52→19:46)
[2021-02-27] MEDS: ASPIRIN EC 81 MG TAB PO SCH (09:52)
[2021-02-27] MEDS: ENSURE HIGH PROTEIN 237 ML CAN PO SCH ×2 (09:52→19:46)
[2021-02-27] MEDS: THIAMINE HCL 100 MG TABLET PO SCH (09:52)
[2021-02-27] MEDS: APIXABAN 5 MG TABLET PO SCH ×2 (09:52→19:46)
[2021-02-27] MEDS: VITAMIN D 1000 UNIT TAB PO SCH (09:52)
[2021-02-27] MEDS: predniSONE 20 MG TAB PO SCH ×2 (09:54→19:46)
--- NOTE | 2021-02-27 17:54 | P.PN ---
Subjective Date of Service: 02/27/21 Primary Care Provider: None Chief Complaint: COVID-19 pneumonia Patient with subcutaneous emphysema. Face still looks swollen especially on the right. He denies shortness of breath. He is tolerating 3 L NC. Physical Examination - Vital Signs Temperature: 97.6 F Blood Pressure: 125/60 Pulse: 84 Respirations: 16 Pulse Ox (%): 91 - Physical Exam General: In no apparent distress, Oriented x3 HEENT: Other (Subcutaneous emphysema-facial, neck and chest) Respiratory: Other (Nonlabored breathing) Cardiovascular: No edema, Regular rate/rhythm, Normal S1 S2 Gastrointestinal: Soft and benign, Non-distended Musculoskeletal: No swelling Neurological: Normal strength at 5/5 x4 extr Assessment And Plan - Current Problems (Diagnosis) (1) Acute respiratory failure with hypoxia Current Visit: Yes Status: Acute (2) Pneumonia due to COVID-19 virus Current Visit: Yes Status: Acute (3) Chronic kidney disease, stage 3 Current Visit: Yes Status: Acute - Plan Continue treatment per COVID protocol. Continue IV steroid, bronchodilators, vitamin supplementation, zinc supplement. Dr. Castro is following On Baracitinib. D-dimer markedly elevated. Continue Eliquis for DVT prophylaxis Wean HFNC as tolerated. Monitor renal function. Physician Review Additional Text: Assessment And Plan Acute hypoxemic respiratory failure secondary to COVID-19 pneumonia SAULO on CKD 3, improved Subcutaneous Emphysema Continue treatment per COVID protocol - IV steroid, bronchodilators, vitamin supplementation, zinc supplement. Dr. Castro is following. Status post Baracitinib. Continue Eliquis for DVT prophylaxis Diamox discontinued needle decompression performed on b/l upper anterior chest for subcutaneous emphysema on 02/23 with improvement removed 02/24, however patient reaccumulated subcutaneous emphysema overnight. Needle decompression placed on b/l anterior chest, mild oozing from skin, had initial improvement of subq emphysema, however angiocath clotted, removed pressure dressing placed on L anterior chest 16Fr fenestrated angiocath placed in R anterior chest, subclavicular, with improvement of emphysema in chest, no bleed, may have clotted as well, leave in overnight VTE: eliquis Code: full
[2021-02-27] MEDS ORDERED: VANCOMYCIN 1.75 GM in NA CHLORIDE 0.9% 500 ML IVPB ONE (18:00)
[2021-02-27] MEDS: ATORVASTATIN 40 MG TAB PO SCH (19:46)
[2021-02-27] MEDS: MELATONIN 5 MG TABLET PO PRN (19:46)
[2021-02-27] MEDS: CEFEPIME/SWI 1gm 10 ML IV SCH (19:46)
[2021-02-27] MEDS ORDERED: CEFEPIME 1 GM/VIAL IV SCH (21:00)
[2021-02-28 06:21] LABS: Basophils % 0.1 % (0-1.3); Hematocrit 36.9 % (39.6-49.0); Lymphocytes % 4.8 % (15.3-44.8); MPV 7.3 fL (7.6-11.3); RBC Red Blood Cell Count 4.12 M/uL (4.33-5.43)
[2021-02-28 06:36] LABS: Potassium 4.3 mmol/L (3.5-5.1)
[2021-02-28] MEDS: VITAMIN D 1000 UNIT TAB PO SCH (07:34)
[2021-02-28] MEDS: ASCORBIC ACID 500 MG TABLET PO SCH ×4 (07:35→21:47)
[2021-02-28] MEDS: ASPIRIN EC 81 MG TAB PO SCH (07:35)
[2021-02-28] MEDS: APIXABAN 5 MG TABLET PO SCH ×2 (07:36→19:53)
[2021-02-28] MEDS: THIAMINE HCL 100 MG TABLET PO SCH (07:36)
[2021-02-28] MEDS: ZINC SULFATE 220 MG CAP PO SCH (07:36)
[2021-02-28] MEDS: predniSONE 20 MG TAB PO SCH ×2 (07:36→19:52)
[2021-02-28] MEDS: CEFEPIME/SWI 1gm 10 ML IV SCH (07:37)
[2021-02-28] MEDS: ENSURE HIGH PROTEIN 237 ML CAN PO SCH ×2 (07:37→19:55)
--- NOTE | 2021-02-28 13:09 | RAD REPORT ---
EXAM DESCRIPTION: Becky Single View02/28/2021 12:45 pm CLINICAL HISTORY: Respiratory failure COMPARISON: February 26, 2021 FINDINGS: Mild improvement in the diffuse bilateral pulmonary opacities. Slight improvement in the subcutaneous emphysema/pneumomediastinum. Heart is normal size The heart is normal size IMPRESSION: Mild improvement in the diffuse bilateral pulmonary opacities probably pneumonia Slight improvement in the subcutaneous emphysema/pneumomediastinum
--- NOTE | 2021-02-28 16:36 | P.PN ---
Subjective Date of Service: 02/28/21 Primary Care Provider: None Chief Complaint: COVID-19 pneumonia Patient with subcutaneous emphysema. His facial swelling looks better than yesterday. Patient tolerating 3 L of oxygen by nasal cannula over a couple of days. Patient desaturate to 70% with ambulation on 4 L of nasal cannula. Physical Examination - Vital Signs Temperature: 98.2 F Blood Pressure: 117/64 Pulse: 90 Respirations: 20 Pulse Ox (%): 91 - Physical Exam General: Alert, In no apparent distress, Oriented x3 HEENT: Mucous membr. moist/pink Neck: JVD not distended Respiratory: Other (Nonlabored breathing) Cardiovascular: Regular rate/rhythm Gastrointestinal: Soft and benign, Non-distended Musculoskeletal: No swelling Integumentary: Other (Subcutaneus Fenestrated canula-right anterior chest. Subcutaneous emphysema significantly improved.) Neurological: Normal strength at 5/5 x4 extr Assessment And Plan - Current Problems (Diagnosis) (1) Acute respiratory failure with hypoxia Current Visit: Yes Status: Acute (2) Pneumonia due to COVID-19 virus Current Visit: Yes Status: Acute (3) Chronic kidney disease, stage 3 Current Visit: Yes Status: Acute - Plan Continue treatment per COVID protocol. Continue IV steroid, bronchodilators, vitamin supplementation, zinc supplement. Dr. Castro is following On Baracitinib. D-dimer markedly elevated. Continue Eliquis for DVT prophylaxis Wean HFNC as tolerated. Monitor renal function. Physician Review Additional Text: Assessment And Plan Acute hypoxemic respiratory failure secondary to COVID-19 pneumonia SAULO on CKD 3, improved Subcutaneous Emphysema Continue treatment per COVID protocol - IV steroid, bronchodilators, vitamin supplementation, zinc supplement. Dr. Castro is following. Status post Baracitinib. Continue Eliquis for DVT prophylaxis Diamox discontinued needle decompression performed on b/l upper anterior chest for subcutaneous emphysema on 02/23 with improvement. Needle removed 02/24, however patient reaccumulated subcutaneous emphysema overnight. Needle decompression placed on b/l anterior chest, left chest needing removed. 16Fr fenestrated angiocath placed in R anterior chest, subclavicular, with improvement of emphysema in chest, no bleed. Continue treatment for 1 more day and test SaO2 with ambulation. VTE: eliquis Code: full
[2021-02-28] MEDS ORDERED: VANCOMYCIN 1.5 GM in NA CHLORIDE 0.9% 500 ML IVPB SCH (18:00)
[2021-03-01 06:51] LABS: Absolute Lymphocytes (CBC) 0.8 K/uL (0.7-4.9); Basophils % 0.2 % (0-1.3); Hematocrit 38.1 % (39.6-49.0); Lymphocytes % 4.3 % (15.3-44.8); MPV 7.3 fL (7.6-11.3); RBC Red Blood Cell Count 4.25 M/uL (4.33-5.43)
[2021-03-01 06:58] LABS: Potassium 4.3 mmol/L (3.5-5.1)
--- NOTE | 2021-03-01 07:21 | RAD REPORT ---
EXAM DESCRIPTION: RAD - Chest Single View - 03/01/2021 5:03 am CLINICAL HISTORY: resp failure COMPARISON: Chest Single View dated 02/28/2021; Chest Single View dated 02/26/2021; Chest Single View d ated 02/24/2021; Chest Single View dated 02/23/2021 FINDINGS: Widespread bilateral airspace disease with subcutaneous emphysema and pneumomediastinum is unchanged. The lung volumes are also decreased. The heart size is within normal limits.No acute osse ous abnormality. No significant pleural effusions or pneumothorax. IMPRESSION: Decreased lung volumes but otherwise similar widespread bilateral airspace disease milli rning for multifocal pneumonia. Subcutaneous emphysema again noted.
[2021-03-01] MEDS: VITAMIN D 1000 UNIT TAB PO SCH (08:52)
[2021-03-01] MEDS: allopurinoL 100 MG TAB PO SCH (08:53)
[2021-03-01] MEDS: ASCORBIC ACID 500 MG TABLET PO SCH ×4 (08:53→21:21)
[2021-03-01] MEDS: predniSONE 20 MG TAB PO SCH ×2 (08:53→21:21)
[2021-03-01] MEDS: ASPIRIN EC 81 MG TAB PO SCH (08:53)
[2021-03-01] MEDS: APIXABAN 5 MG TABLET PO SCH ×2 (08:53→21:21)
[2021-03-01] MEDS: ZINC SULFATE 220 MG CAP PO SCH (08:53)
[2021-03-01] MEDS: ATORVASTATIN 80 MG TAB PO SCH (08:53)
[2021-03-01] MEDS: THIAMINE HCL 100 MG TABLET PO SCH (08:53)
[2021-03-01] MEDS: ENSURE HIGH PROTEIN 237 ML CAN PO SCH ×2 (08:54→21:00)
--- NOTE | 2021-03-01 12:16 | P.PN ---
Subjective Date of Service: 03/01/21 Primary Care Provider: None Chief Complaint: COVID-19 pneumonia Subjective: Improving (States he slept good and is breathing good. Denies any n/v/d.) <Becky Palumbo - Last Filed: 03/01/21 12:05> Date of Service: 03/01/21 <patti licona - Last Filed: 03/01/21 18:37> Review of Systems 10-point ROS is otherwise unremarkable <Becky Palumbo - Last Filed: 03/01/21 12:05> Physical Examination - Vital Signs Temperature: 97.7 F Blood Pressure: 126/59 Pulse: 75 Respirations: 20 Pulse Ox (%): 89 <Becky Palumbo - Last Filed: 03/01/21 12:05> Assessment And Plan Physician Review Additional Text: Physical Exam General: No apparent distress, oriented x3, pleasant HEENT: Subcutaneous emphysema-facial, neck and chest Respiratory: Nonlabored breathing, on 2.5L NC Cardiovascular: Regular rate Gastrointestinal: Soft Musculoskeletal: 1+ pitting edema bilateral feet Neurological: Normal speech Assessment Acute hypoxemic respiratory failure secondary to COVID-19 pneumonia SAULO on CKD 3, improved Subcutaneous Emphysema Plan Continue treatment per COVID protocol - oral steroid, bronchodilators, vitamin supplementation, zinc supplement. Dr. Castro is following. Status post Baracitinib. Continue Eliquis for DVT prophylaxis Diamox discontinued Needle decompression performed on b/l upper anterior chest for subcutaneous emphysema on 02/23 with improvement. Needle removed 02/24, however patient reaccumulated subcutaneous emphysema overnight. Needle decompression placed on b/l anterior chest, left chest needle removed. 16Fr fenestrated angiocath placed in R anterior chest, subclavicular, with improvement of emphysema in chest, no bleed. Continue treatment for 1 more day and test SaO2 with ambulation. 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 Patient still desaturate to 70% on 4 L of oxygen by nasal cannula. Will continue treatment and monitor as inpatient. <patti licona - Last Filed: 03/01/21 18:37>
[2021-03-01] MEDS: BENZONATATE 100 MG CAP PO PRN (21:20)
[2021-03-01 21:45] VITALS: BMI 27.9
[2021-03-02] MEDS: VITAMIN D 1000 UNIT TAB PO SCH (08:53)
[2021-03-02] MEDS: allopurinoL 100 MG TAB PO SCH (08:53)
[2021-03-02] MEDS: ZINC SULFATE 220 MG CAP PO SCH (08:53)
[2021-03-02] MEDS: ATORVASTATIN 80 MG TAB PO SCH (08:53)
[2021-03-02] MEDS: predniSONE 20 MG TAB PO SCH ×2 (08:54→19:29)
[2021-03-02] MEDS: THIAMINE HCL 100 MG TABLET PO SCH (08:54)
[2021-03-02] MEDS: ASPIRIN EC 81 MG TAB PO SCH (08:55)
[2021-03-02] MEDS: ENSURE HIGH PROTEIN 237 ML CAN PO SCH ×2 (08:55→19:29)
[2021-03-02] MEDS: ASCORBIC ACID 500 MG TABLET PO SCH ×4 (08:55→19:29)
[2021-03-02] MEDS: APIXABAN 5 MG TABLET PO SCH ×2 (08:55→19:29)
--- NOTE | 2021-03-02 13:18 | P.PN ---
Subjective Date of Service: 03/02/21 Primary Care Provider: None Chief Complaint: COVID-19 pneumonia Subcutaneous emphysema almost resolved. Patient complaining of nasal congestion. Patient tolerating 3-4L of oxygen by nasal cannula but desaturate with ambulation on the 4L. Physical Examination - Vital Signs Temperature: 97.8 F Blood Pressure: 113/70 Pulse: 73 Respirations: 20 Pulse Ox (%): 95 - Physical Exam General: In no apparent distress, Oriented x3 Neck: JVD not distended Respiratory: Other (Nonlabored breathing) Cardiovascular: Regular rate/rhythm, Normal S1 S2 Gastrointestinal: Soft and benign, Non-distended Musculoskeletal: No swelling Integumentary: No rashes Neurological: Normal strength at 5/5 x4 extr Assessment And Plan - Current Problems (Diagnosis) (1) Acute respiratory failure with hypoxia Current Visit: Yes Status: Acute (2) Pneumonia due to COVID-19 virus Current Visit: Yes Status: Acute (3) Chronic kidney disease, stage 3 Current Visit: Yes Status: Acute - Plan Continue treatment per COVID protocol. Continue IV steroid, bronchodilators, vitamin supplementation, zinc supplement. Dr. Castro is following Completed Baracitinib. Saline nasal drops for nasal congestion. S/P Diamox Status post Needle decompression on b/l upper anterior chest for subcutaneous emphysema. Subcutaneous emphysema almost resolved Continue PT. Patient may benefit from post acute COVID care/Acute rehab. Continue Eliquis for DVT prophylaxis Physician Review Additional Text: Subcutaneus angiocath removed. Patient still desaturate to 70% on 4 L of oxygen by nasal cannula. Will continue treatment and monitor as inpatient.
[2021-03-02] MEDS ORDERED: SOD CHLORIDE 0.65% NASAL SPRAY NAS SCH (21:00)
[2021-03-03 06:13] LABS: Absolute Lymphocytes (CBC) 1.4 K/uL (0.7-4.9); Basophils % 0.2 % (0-1.3); Hematocrit 39.3 % (39.6-49.0); Lymphocytes % 7.3 % (15.3-44.8); MPV 7.5 fL (7.6-11.3); RBC Red Blood Cell Count 4.34 M/uL (4.33-5.43)
[2021-03-03 06:22] LABS: Potassium 4.9 mmol/L (3.5-5.1)
[2021-03-03] MEDS ORDERED: SOD CHLORIDE 0.65% NASAL SPRAY NAS PRN (07:16)
[2021-03-03] MEDS: VITAMIN D 1000 UNIT TAB PO SCH (09:40)
[2021-03-03] MEDS: ASPIRIN EC 81 MG TAB PO SCH (09:41)
[2021-03-03] MEDS: THIAMINE HCL 100 MG TABLET PO SCH (09:41)
[2021-03-03] MEDS: allopurinoL 100 MG TAB PO SCH (09:41)
[2021-03-03] MEDS: ATORVASTATIN 80 MG TAB PO SCH (09:41)
[2021-03-03] MEDS: ASCORBIC ACID 500 MG TABLET PO SCH ×4 (09:41→19:08)
[2021-03-03] MEDS: ZINC SULFATE 220 MG CAP PO SCH (09:41)
[2021-03-03] MEDS: predniSONE 20 MG TAB PO SCH ×2 (09:41→19:08)
[2021-03-03] MEDS: APIXABAN 5 MG TABLET PO SCH ×2 (09:41→19:08)
[2021-03-03] MEDS: ENSURE HIGH PROTEIN 237 ML CAN PO SCH ×2 (09:42→19:10)
[2021-03-03 12:51] LABS: Blood Morphology Comment NOT SEEN (NOT SEEN); Platelet Estimate INCR; White Blood Cell Scan OK (OK)
--- NOTE | 2021-03-03 13:39 | P.PN ---
Subjective Date of Service: 03/03/21 Primary Care Provider: None Chief Complaint: COVID-19 pneumonia Subcutaneous emphysema almost resolved. Patient has no new complain. He is status nasal congestion is better Patient currently tolerating 3L of oxygen by nasal cannula. Physical Examination - Vital Signs Temperature: 97.4 F Blood Pressure: 106/60 Pulse: 92 Respirations: 24 Pulse Ox (%): 91 - Physical Exam General: Alert, In no apparent distress Neck: JVD not distended Respiratory: Other (Nonlabored breathing) Cardiovascular: Regular rate/rhythm, Normal S1 S2 Gastrointestinal: Soft and benign, Non-distended Musculoskeletal: No swelling Integumentary: Other (Subcutaneous emphysema resolved) Neurological: Normal strength at 5/5 x4 extr Assessment And Plan - Current Problems (Diagnosis) (1) Acute respiratory failure with hypoxia Current Visit: Yes Status: Acute (2) Pneumonia due to COVID-19 virus Current Visit: Yes Status: Acute (3) Chronic kidney disease, stage 3 Current Visit: Yes Status: Acute - Plan Continue treatment per COVID protocol. Continue IV steroid, bronchodilators, vitamin supplementation, zinc supplement. Dr. Castro is following Completed Baracitinib. Saline nasal drops for nasal congestion. S/P Diamox Status post Needle decompression on b/l upper anterior chest for subcutaneous emphysema. Subcutaneous emphysema almost resolved. Continue PT. Patient may benefit from post acute COVID care/Acute rehab. Patient is being evaluated for inpatient rehab Continue Eliquis for DVT prophylaxis
[2021-03-04] MEDS: predniSONE 20 MG TAB PO SCH ×2 (08:46→19:30)
[2021-03-04] MEDS: ASPIRIN EC 81 MG TAB PO SCH (08:46)
[2021-03-04] MEDS: ZINC SULFATE 220 MG CAP PO SCH (08:46)
[2021-03-04] MEDS: ASCORBIC ACID 500 MG TABLET PO SCH ×4 (08:46→19:30)
[2021-03-04] MEDS: ATORVASTATIN 80 MG TAB PO SCH (08:46)
[2021-03-04] MEDS: THIAMINE HCL 100 MG TABLET PO SCH (08:46)
[2021-03-04] MEDS: VITAMIN D 1000 UNIT TAB PO SCH (08:46)
[2021-03-04] MEDS: APIXABAN 5 MG TABLET PO SCH ×2 (08:46→19:30)
[2021-03-04] MEDS: allopurinoL 100 MG TAB PO SCH (08:46)
[2021-03-04] MEDS: ENSURE HIGH PROTEIN 237 ML CAN PO SCH ×2 (08:47→19:30)
--- NOTE | 2021-03-04 13:46 | P.PN ---
Subjective Date of Service: 03/04/21 Primary Care Provider: None Chief Complaint: COVID-19 pneumonia Subcutaneous emphysema almost resolved. Patient has no new complain. Patient currently tolerating 3L of oxygen by nasal cannula. He does have some shortness of breath with exertion. Physical Examination - Vital Signs Temperature: 97.7 F Blood Pressure: 131/79 Pulse: 83 Respirations: 24 Pulse Ox (%): 93 - Physical Exam General: Alert, In no apparent distress, Oriented x3 HEENT: Mucous membr. moist/pink Neck: JVD not distended Respiratory: Other (Nonlabored breathing.) Cardiovascular: No edema, Regular rate/rhythm, Normal S1 S2 Gastrointestinal: Soft and benign, Non-distended Musculoskeletal: No swelling Integumentary: No rashes Neurological: Normal strength at 5/5 x4 extr Assessment And Plan - Current Problems (Diagnosis) (1) Acute respiratory failure with hypoxia Current Visit: Yes Status: Acute (2) Pneumonia due to COVID-19 virus Current Visit: Yes Status: Acute (3) Chronic kidney disease, stage 3 Current Visit: Yes Status: Acute - Plan Continue treatment per COVID protocol. Continue IV steroid, bronchodilators, vitamin supplementation, zinc supplement. Dr. Castro is following Completed Baracitinib. Saline nasal drops for nasal congestion. S/P Diamox Status post Needle decompression on b/l upper anterior chest for subcutaneous emphysema. Subcutaneous emphysema almost resolved. Continue PT. Patient is being evaluated for inpatient rehab Continue Eliquis for DVT prophylaxis
--- NOTE | 2021-03-04 18:26 | RAD REPORT ---
EXAM DESCRIPTION: CT - Chest For Pe Angio - 03/04/2021 6:17 pm CLINICAL HISTORY: COVID PNA, Subcutaneous emphysema COMPARISON: No comparisonsChest Single View dated 03/01/2021 FINDINGS: Moderate to severe bilateral airspace disease. There is a background emphysema. Severe sub cutaneous emphysema pneumomediastinum. Negative for pulmonary embolism. No pneumothorax identified. N o acute fractures. No axillary or mediastinal lymphadenopathy. Question low-density right thyroid nod ule. Coronary artery calcifications present. The heart size is normal. No acute findings within the u pper abdomen are identified. IMPRESSION: Negative for pulmonary embolism. Severe pneumomediastinum and subcutaneous emphysema. Wi despread airspace disease likely reflecting multifocal pneumonia.
[2021-03-05 04:02] LABS: Absolute Lymphocytes (CBC) 0.9 K/uL (0.7-4.9); Basophils % 0.4 % (0-1.3); Hematocrit 39.4 % (39.6-49.0); Lymphocytes % 5.7 % (15.3-44.8); MPV 7.7 fL (7.6-11.3); RBC Red Blood Cell Count 4.34 M/uL (4.33-5.43)
[2021-03-05 04:16] LABS: Potassium 5.1 mmol/L (3.5-5.1)
[2021-03-05] MEDS: ASPIRIN EC 81 MG TAB PO SCH (07:55)
[2021-03-05] MEDS: ASCORBIC ACID 500 MG TABLET PO SCH (07:56)
[2021-03-05] MEDS: ATORVASTATIN 80 MG TAB PO SCH (07:56)
[2021-03-05] MEDS: THIAMINE HCL 100 MG TABLET PO SCH (07:56)
[2021-03-05] MEDS: allopurinoL 100 MG TAB PO SCH (07:56)
[2021-03-05] MEDS: VITAMIN D 1000 UNIT TAB PO SCH (07:56)
[2021-03-05] MEDS: ZINC SULFATE 220 MG CAP PO SCH (07:56)
[2021-03-05] MEDS: APIXABAN 5 MG TABLET PO SCH (07:57)
[2021-03-05] MEDS: ENSURE HIGH PROTEIN 237 ML CAN PO SCH (07:58)
[2021-03-05 10:44] VITALS: O2SAT 94
[2021-03-05 12:30] VITALS: BP 126/66; TEMP 97
--- NOTE | 2021-03-05 13:38 | P.DS ---
Admission Date: 02/15/21 Discharge Date: 03/05/21 Primary Care Provider: None Disposition: ROUTINE DISCHARGE Discharge Condition: FAIR Reason for Admission: COVID-19 pneumonia - Problems (1) Acute respiratory failure with hypoxia Status: Acute (2) Pneumonia due to COVID-19 virus Status: Acute (3) Chronic kidney disease, stage 3 Status: Acute Brief History of Present Illness: 70-year-old male with history of CAD status post stent, gout, hypertension presented to the emergency department for shortness of breath. Patient reports testing positive for Covid approximately 2 weeks prior, family member checked on him and noted that his saturations were in the 60s on room air. Patient was brought to the emergency department for further evaluation and was placed on high flow oxygen at 90% FiO2 40 L. Patient labs were significant for white blood cell count 20.3 with left shift hemoglobin 12.4 ABG with pH of 7.5 PCO2 25.8 PO2 56.1 sodium 133 creatinine 1.79 GFR 38 lactic acid 3.2 ferritin 1400 2T bili 2.0D bili 0.8 AST 148 ALT 135 alk phos 295 troponin 0 0.09 C-reactive protein 230 procalcitonin 0.45. Chest x-ray demonstrated multifocal pneumonia compatible with COVID-19 pattern, patient was given IV steroids in the emergency department ED provider and admitted for further management. Hospital Course: Patient admitted to the medical floor on high-flow oxygen. COVID protocol initiated patient treated with IV steroid, bronchodilators, vitamin supplementation, zinc supplement. Patient seen and evaluated by pulmonary-Dr. Castro. He developed pneumomediastinum and subcutaneous emphysema. Subcutaneus needle decompression on the subcutaneous emphysema was done. He was also treated with Baracitinib. Patient oxygen requirement decreased over time along with the subcutaneous emphysema. He was treated with Diamox at some point. Subcutaneous emphysema almost resolved. His oxygen saturation on 3 L of oxygen with ambulation was 70% a few days ago Today patient is tolerating room air at rest. He is discharged with home oxygen to use with ambulation. He is also discharged to continue prednisone taper. He will follow with Dr. Castro within 1 week. Vital Signs/Physical Exam: Temp Pulse Resp BP Pulse Ox 97.0 F 103 H 16 126/66 92 03/05/21 12:00 03/05/21 12:00 03/05/21 12:00 03/05/21 12:00 03/05/21 12:00 General: Alert, In no apparent distress HEENT: Mucous membr. moist/pink Neck: JVD not distended Respiratory: Normal air movement Cardiovascular: No edema, Regular rate/rhythm, Normal S1 S2 Gastrointestinal: Soft and benign, Non-distended Musculoskeletal: No swelling Integumentary: No rashes Neurological: Normal strength at 5/5 x4 extr Laboratory Data at Discharge: WBC 15.30 K/uL (4.3-10.9) H D 03/05/21 03:35 Hgb 13.3 g/dL (13.6-17.9) L 03/05/21 03:35 Hct 39.4 % (39.6-49.0) L 03/05/21 03:35 Plt Count 294 K/uL (152-406) D 03/05/21 03:35 PT 15.3 SECONDS (9.5-12.5) H 02/15/21 19:37 INR 1.33 02/15/21 19:37 APTT 27.6 SECONDS (24.3-36.9) 02/15/21 19:37 Sodium 141 mmol/L (136-145) 03/05/21 03:35 Potassium 5.1 mmol/L (3.5-5.1) 03/05/21 03:35 BUN 30 mg/dL (7-18) H 03/05/21 03:35 Creatinine 1.06 mg/dL (0.55-1.3) 03/05/21 03:35 Glucose 105 mg/dL (74-106) 03/05/21 03:35 Magnesium 2.7 mg/dL (1.8-2.4) H 02/27/21 05:54 Total Bilirubin 0.8 mg/dL (0.2-1.0) 02/25/21 04:21 AST 23 U/L (15-37) 02/25/21 04:21 ALT 78 U/L (12-78) 02/25/21 04:21 Alkaline Phosphatase 149 U/L (45-117) H 02/25/21 04:21 Troponin I 0.05 ng/mL (0.0-0.045) H 02/16/21 04:34 Lipase 105 U/L (73-393) 02/15/21 19:37 Home Medications: Aspirin Chewable [Aspirin Chewable*] 81 mg PO DAILY 10/20/16 allopurinoL [Zyloprim*] 100 mg PO DAILY 10/20/16 Atorvastatin Calcium [Lipitor] 80 mg PO DAILY 02/16/21 Apixaban [Eliquis] 5 mg PO BID #30 tablet 03/05/21 Ascorbic Acid [Vitamin C*] 500 mg PO QID #120 tablet 03/05/21 Benzonatate [Tessalon Perle*] 100 mg PO TID PRN #30 cap 03/05/21 Cholecalciferol (Vitamin D3) [Vitamin D3] 4,000 unit PO DAILY #60 capsule 03/05/21 Fluticasone [Flonase 50MCG Nasal [place]*] 2 sprays SOFI BID PRN #1 btl 03/05/21 Thiamine HCl [Vitamin B-1*] 200 mg PO DAILY #60 tablet 03/05/21 Zinc Sulfate [Zinc Sulfate*] 220 mg PO DAILY #30 cap 03/05/21 predniSONE [Prednisone] 20 mg PO BID #21 tablet 03/05/21 New Medications: Apixaban [Eliquis] 5 mg PO BID #30 tablet Fluticasone [Flonase 50MCG Nasal [place]*] 2 sprays SOFI BID PRN #1 btl PRN Reason: Nasal Congestion predniSONE [Prednisone] 20 mg PO BID #21 tablet Benzonatate [Tessalon Perle*] 100 mg PO TID PRN #30 cap PRN Reason: Cough Thiamine HCl [Vitamin B-1*] 200 mg PO DAILY #60 tablet Ascorbic Acid [Vitamin C*] 500 mg PO QID #120 tablet Cholecalciferol (Vitamin D3) [Vitamin D3] 4,000 unit PO DAILY #60 capsule Zinc Sulfate [Zinc Sulfate*] 220 mg PO DAILY #30 cap Diet: AHA Activity: Ad juventino Followup: Jonatahn Castro MD [ACTIVE - CAN ADMIT] - 1 Week NONE,NONE [Primary Care Provider] - Time spent managing pt's care (in minutes): 40
== END 2021-03-05 12:15 | disposition home or self-care (01) | DRG 871 ==
LOC: ER 18:47 → ERHOLD 20:32 → 3RD-ICU 21:42 → 4TH 02-26 19:25
PROVIDERS: ADMIT Internal Medicine; ATTEND Internal Medicine
PROC: 0J9630Z Drainage of Chest Subcutaneous Tissue and Fascia with Drainage Device, Percutaneous Approach (ICD-10-PCS; principal; 2021-02-23)
PROC: 0J9630Z Drainage of Chest Subcutaneous Tissue and Fascia with Drainage Device, Percutaneous Approach (ICD-10-PCS; 2021-02-25)
DX: A41.89 Other specified sepsis (principal); U07.1 COVID-19; J12.82 Pneumonia due to coronavirus disease 2019; J96.01 Acute respiratory failure with hypoxia; E43 Unspecified severe protein-calorie malnutrition; K72.00 Acute and subacute hepatic failure without coma; N17.9 Acute kidney failure, unspecified; T79.7XXA Traumatic subcutaneous emphysema, initial encounter; I12.9 Hypertensive chronic kidney disease with stage 1 through stage 4 chronic kidney disease, or unspecified chronic kidney disease; N18.30 Chronic kidney disease, stage 3 unspecified; Z68.28 Body mass index [BMI] 28.0-28.9, adult; I25.10 Atherosclerotic heart disease of native coronary artery without angina pectoris; M10.9 Gout, unspecified; R77.8 Other specified abnormalities of plasma proteins; Z95.5 Presence of coronary angioplasty implant and graft
CPT/HCPCS: 36415; 70450; 71045; 71275; 80048; 80053; 80076; 81003; 81015; 82728; 82805; 82947; 83605; 83690; 83735; 84145; 84484; 85025; 85027; 85379; 85610; 85730; 86140; 87040; 87070; 87081; 87086; 87088; 87804; 93005; 93306; 94003; 94010; 96361; 96365; 96372; 96375; 97110; 97112; 97116; 97161; 99291; J0456; J0692; J0696; J2920; J2930; J3370; J7030; J7040; J7050; J7512; Q9967